=== PATIENT | female | born 1955 | race Caucasian/White ===

== ENCOUNTER 2019-07-13 12:35 | Inpatient (IN) | payer OTHER ==
[~2019-07-13] VITALS: Ht 160 cm; Wt 178.1 kg
[~2019-07-13 12:35] MED LIST: ALBU90OI61 INH; AMLO10 PO; AMOX500 PO; ASPI325 PO; AZIT250 PO; CARV6.25 PO; CEPH500 PO; CHOL10002; CHOL10002 PO; DIPATR PO; DULO60 PO; GABA300 PO; HYDACE5 PO; HYDCHL25; LEVFLO500 PO; LISI20; LOVA40 PO; MECL25 PO; MELO7.5; NICO21TP TOP; ONDA8ODT MM; OXYB5 PO; OXYB5ER PO; PRED20 PO; QVAR7.3 G1 INH; RXNEOPOLHC AU; TOPI25 PO
[2019-07-13 13:13] LABS: PCO2 Arterial 44.8 mmHg (35-45); PO2 Arterial 59.7 mmHg (80-100); pH Blood Arterial 7.43 (7.35-7.45)
[2019-07-13 13:29] LABS: BASOPHILS ABSOLUTE AUTO 0.04 K/mm3 (0.00-0.23); BASOPHILS PERCENT AUTO 0 % (0-2); EOSINOPHILS ABSOLUTE AUTO 0.02 K/mm3 (0.00-0.68); EOSINOPHILS PERCENT AUTO 0 % (0-6); Hematocrit 38.7 % (33.0-51.0); Hemoglobin 12.1 g/dL (11.5-16.0); IMMATURE GRAN ABSOLUTE AUTO 0.11 K/mm3 (0.00-0.10); IMMATURE GRAN PERCENT AUTO 1 % (0-1); LYMPHOCYTES ABSOLUTE AUTO 1.59 K/mm3 (0.84-5.20); LYMPHOCYTES PERCENT AUTO 10 % (21-46); MONOCYTES ABSOLUTE AUTO 1.43 K/mm3 (0.16-1.47); MONOCYTES PERCENT AUTO 9 % (4-13); Mean Corpuscular HGB 31.8 pg (26.0-34.0); Mean Corpuscular HGB Conc 31.3 g/dL (31.5-36.5); Mean Platelet Volume 10.7 fL (9.1-12.4); NEUTROPHILS PERCENT AUTO 80 % (41-73); Platelet Count 132 K/mm3 (150-400); RDW Coefficient Variation 14.2 % (11.7-14.2); RDW Standard Deviation 53.8 fL (35.1-46.3); Red Blood Cell Count 3.81 M/mm3 (3.80-5.20); White Blood Cell Count 15.69 K/mm3 (4.00-11.30)
[2019-07-13 13:30] LABS: Mean Corpuscular Volume 102 fL (80-100)
[2019-07-13 13:51] LABS: Albumin, Blood 2.2 g/dL (3.4-5.0); Albumin/Globulin Ratio 0.6 (0.8-1.8); Bun/Creatinine Ratio 34.4 (12.0-20.0); Creatinine, Blood 1.28 mg/dL (0.40-1.00); Globulin, Blood 3.9 g/dL (2.2-4.0); Potassium, Blood 4.6 mmol/L (3.5-5.5); Total Protein, Blood 6.1 g/dL (6.4-8.2)
[2019-07-13 14:28] LABS: Troponin I 0.972 ng/mL (0.000-0.040)
[2019-07-13 14:33] LABS: Calcium, Blood 5.1 mg/dL (8.5-10.1)
[2019-07-13] MEDS ORDERED: OXYB5 PO (14:53)
[2019-07-13] MEDS ORDERED: ALBU90OI INH (14:53)
[2019-07-13] MEDS ORDERED: HYDR1TAB94 PO (14:54)
[2019-07-13] MEDS ORDERED: POTCHL20ER PO (14:54)
[2019-07-13] MEDS ORDERED: TIOT18 INH (14:55)
[2019-07-13] MEDS ORDERED: SALM50IP INH (14:55)
[2019-07-13] MEDS ORDERED: CLOP75 PO (14:58)
[2019-07-13] MEDS ORDERED: Accuneb0.63 MG/3 NEB (15:00)
[2019-07-13] MEDS ORDERED: GABA300 PO (15:01)
[2019-07-13] MEDS ORDERED: LISI20 PO (15:03)
[2019-07-13] MEDS ORDERED: FURO40 PO (15:03)
[2019-07-13] MEDS ORDERED: DULO30 PO (15:14)
[2019-07-13] MEDS ORDERED: ATOR80 PO (15:15)
[2019-07-13] MEDS ORDERED: Aspir 8181 MG PO (15:15)
[2019-07-13 15:49] LABS: Calcium, Blood 8.4 mg/dL (8.5-10.1); Magnesium, Blood 2.2 mg/dL (1.6-2.4); Phosphorus, Blood 4.4 mg/dL (2.5-4.9)
--- NOTE | 2019-07-14 04:55 | NUR ---
AOX3. LS SLIGHTLY DIM, DENIES SOB. PT WAS ON 7L NC, USUALLY WEARS 2.5L AT NIGHT AT HOME. NO C/O NAUSEA. PAIN RATED 6/10 IN KNEES AND R SHOULDER. SR ON TELE WITH PVCS. VSS. SECOND TROP TRENDING DOWN. SBA W/1 AND WALKER TO BSC. UNSURE OF DC PLAN AT THIS TIME.
[2019-07-14 05:14] LABS: BASOPHILS ABSOLUTE AUTO 0.03 K/mm3 (0.00-0.23); BASOPHILS PERCENT AUTO 0 % (0-2); EOSINOPHILS PERCENT AUTO 0 % (0-6); Hematocrit 38.6 % (33.0-51.0); Hemoglobin 12.2 g/dL (11.5-16.0); IMMATURE GRAN ABSOLUTE AUTO 0.06 K/mm3 (0.00-0.10); IMMATURE GRAN PERCENT AUTO 0 % (0-1); LYMPHOCYTES ABSOLUTE AUTO 0.86 K/mm3 (0.84-5.20); LYMPHOCYTES PERCENT AUTO 6 % (21-46); MONOCYTES ABSOLUTE AUTO 0.53 K/mm3 (0.16-1.47); MONOCYTES PERCENT AUTO 4 % (4-13); Mean Corpuscular HGB 30.7 pg (26.0-34.0); Mean Corpuscular HGB Conc 31.6 g/dL (31.5-36.5); Mean Platelet Volume 10.8 fL (9.1-12.4); NEUTROPHILS ABSOLUTE AUTO 12.25 K/mm3 (1.96-9.15); NEUTROPHILS PERCENT AUTO 89 % (41-73); Platelet Count 135 K/mm3 (150-400); RDW Coefficient Variation 13.8 % (11.7-14.2); RDW Standard Deviation 49.6 fL (35.1-46.3); Red Blood Cell Count 3.97 M/mm3 (3.80-5.20); White Blood Cell Count 13.73 K/mm3 (4.00-11.30)
[2019-07-14 05:17] LABS: Mean Corpuscular Volume 97 fL (80-100)
[2019-07-14 05:34] LABS: Magnesium, Blood 2.3 mg/dL (1.6-2.4)
[2019-07-14 05:46] LABS: Albumin, Blood 2.6 g/dL (3.4-5.0); Albumin/Globulin Ratio 0.7 (0.8-1.8); Bilirubin, Total 1.2 mg/dL (0.1-1.0); Bun/Creatinine Ratio 32.3 (12.0-20.0); Calcium, Blood 8.5 mg/dL (8.5-10.1); Creatinine, Blood 1.58 mg/dL (0.40-1.00); Globulin, Blood 3.7 g/dL (2.2-4.0); Potassium, Blood 4.2 mmol/L (3.5-5.5); Total Protein, Blood 6.3 g/dL (6.4-8.2)
[2019-07-14 11:45] LABS: Source, Urine Clean Catch
[2019-07-14 12:03] LABS: Bilirubin, Urine Neg (Neg); Blood, Urine 2+ (Neg); Glucose Qualitative, Urine Neg (Neg); Ketones, Urine Neg (Neg); Leukocyte Esterase, Urine Neg (Neg); Nitrite, Urine Neg (Neg); Protein, Urine 1+ (Neg); Urobilinogen, Urine NORM (Normal)
[2019-07-14 12:25] LABS: Appearance, Urine Clear (Clear); Color, Urine Pale Yellow (P-Yellow)
[2019-07-14 12:29] LABS: Bacteria Not Seen /hpf; Granular Casts 0-2 /lpf (0); Red Blood Cells, Urine 0-2 /hpf (0-2); Squamous Epithelial Cells Many /hpf (Few); White Blood Cells, Urine 0-2 /hpf (0-5)
--- NOTE | 2019-07-14 17:46 | NUR ---
SHIFT SUMMARY: PT IS A/O X 4 WITH C/O PAIN X 1 FOR WHICH SHE REPORTS THE PRN PAIN MED WAS EFFECTIVE. PT HAS BEEN VERY PLEASANT AND COOPERATIVE WITH CARE. URINE WAS COLLECTED AND UA SENT TO LAB ORDERED. CRITICAL TROPONIN LEVEL WAS CALLED IN TO DR ROBLES AND NO NEW ORDERS WERE GIVEN, PT HAS REMAINED ASYMPTOMATIC. PT DAUGHTER HAS BEEN AT BEDSIDE MOST OF THE DAY AND IS ALSO VERY PLEASANT. PT CALLS FOR HELP WHEN NEEDED.
--- NOTE | 2019-07-15 06:10 | NUR ---
63 year old Female with acute on heart failure continues on oxygen per her home use and she has own cpap but have not seen her using it tonight. Resp therapy inspected CPAP unit. Continous pulse oximetry rarely alarms. Medicated PT x 1 with norco 5/325 mg tab one for co rt shoulder pain. On tele monitor NSR rate 70 with PVC's PACS. Quiet, responds to verbal stumuli. PT with morbid obesity, EDSON, CHF. Recent kidney stone passed without intervention. Urine shannon voids only 1 time. Poor appetite. Family in to see PT, she cares for 3 Grandchildren several times a month. Resting quietly this shift.
--- NOTE | 2019-07-15 18:02 | NUR ---
SHIFT SUMMARY PT AWAKE WATCHING TV, DURING SHIFT REPORT THIS AM. HOME CPAP ON BS TABLE, BUT DID NOT USE DURING THE NIGHT. PT ON 2.5L AT START OF SHIFT. PER REPORT, PT NORMALLY ONLY USES O2 AT HS, BUT HAD BEEN ON 5L DURING THE DAY. ADMITTED FOR CHF, MORBIDLY OBESE WITH SCD'S ON. REPORTED PAIN TO R SHOULDER AND L FLANK (D/T RECENT KIDNEY STONE), BUT DECLINED NEEDING MEDICATION. PER NOC REPORT, PT ONLY UP TO VOID X1. LASIX GIVEN IN AM AND ORDER CHANGED LATER TO BID FOR TODAY. PT REPORTED BEING UP TO VOID SEVERAL TIMES TODAY. DAUGHTER HERE TO VISIT DURING THE DAY; ASSISTING PT IN SHOWER PER PT REQUEST. SCATTERED SCABS ON ARMS; PT HAD TO BE REMINDED DURING SHIFT REPORT NOT TO SCRATCH. NO C/O THRU OUT THE DAY. PLEASANT. DENIED NEEDS. CALL LT IN REACH.
--- NOTE | 2019-07-16 04:20 | NUR ---
PT continues on diuretics to treat acute on chronic CHF. She uses nc at 3 l or cpap at HS. Baseline does not use oxygen during day typically. PT using cpap with 3 l bled in . sats greater than 90% via bioxx monitor. Tele monitor continues to show NSR with pac and pvc. PT has morbid obesity is able to get up to BSC unassisted but needs assist with showering and ADLS. and adult Child assists with ADLS.
[2019-07-16 04:40] LABS: Hematocrit 41.1 % (33.0-51.0); Hemoglobin 13.1 g/dL (11.5-16.0); Mean Corpuscular HGB 30.9 pg (26.0-34.0); Mean Corpuscular HGB Conc 31.9 g/dL (31.5-36.5); Mean Corpuscular Volume 97 fL (80-100); Mean Platelet Volume 10.3 fL (9.1-12.4); Platelet Count 187 K/mm3 (150-400); RDW Coefficient Variation 13.9 % (11.7-14.2); RDW Standard Deviation 49.1 fL (35.1-46.3); Red Blood Cell Count 4.24 M/mm3 (3.80-5.20)
[2019-07-16 05:32] LABS: Bun/Creatinine Ratio 42.4 (12.0-20.0); Calcium, Blood 8.5 mg/dL (8.5-10.1); Creatinine, Blood 1.44 mg/dL (0.40-1.00); Potassium, Blood 4.6 mmol/L (3.5-5.5)
[2019-07-16] MEDS ORDERED: NEBI5 PO (10:40)
[2019-07-16] MEDS ORDERED: SPIR25 PO (10:40)
--- NOTE | 2019-07-16 12:50 | NUR ---
DISCHARGE NOTE PT DISCHARGED TO HOME. PT TRANSFERED TO WHEELCHAIR ON OWN. PT TRANSPORTED TO VEHICLE IN WHEELCHAIR BY DAUGHTER. PT BELONGINGS WITH PATIENT. PT EDUCATED ON DISCHARGE MEDICATIONS AND FOLLOW-UP APPOINTMENTS. PT VERBALIZED UNDERSTANDING OF DISCHARGE EDUCATION.
--- NOTE | 2019-07-16 15:05 | NUR ---
Pt. is doing wel offered prayers and pt. may go home today.
== END 2019-07-16 12:48 | disposition home or self-care (01) | DRG 291 ==
LOC: ER 12:35 → MEDS 15:53 → ENPENDDIS 07-16 10:00 → MEDS 07-16 12:48
PROVIDERS: Emergency Medicine; Internal Medicine; ADMIT Internal Medicine
DX: I13.0 Hypertensive heart and chronic kidney disease with heart failure and stage 1 through stage 4 chronic kidney disease, or unspecified chronic kidney disease (principal); J96.21 Acute and chronic respiratory failure with hypoxia; I50.43 Acute on chronic combined systolic (congestive) and diastolic (congestive) heart failure; Z68.44 Body mass index [BMI] 60.0-69.9, adult; E66.01 Morbid (severe) obesity due to excess calories; N18.3 Chronic kidney disease, stage 3 (moderate); I34.0 Nonrheumatic mitral (valve) insufficiency; I25.10 Atherosclerotic heart disease of native coronary artery without angina pectoris; J44.9 Chronic obstructive pulmonary disease, unspecified; G47.33 Obstructive sleep apnea (adult) (pediatric); F32.9 Major depressive disorder, single episode, unspecified; Z87.891 Personal history of nicotine dependence; Z79.02 Long term (current) use of antithrombotics/antiplatelets; Z79.82 Long term (current) use of aspirin; Z79.899 Other long term (current) drug therapy; I25.2 Old myocardial infarction
CPT/HCPCS: 36415; 36600; 71045; 74176; 80048; 80053; 81001; 82310; 82803; 83690; 83735; 83880; 84100; 84484; 85025; 85027; 87086; 93005; 93010; 94640; 94760; 94762; 96374; 96375; 99284-25; 99285-25; A9270; A9270-GY; C8929; J1650; J1940; J2405; J2930; J3010; P9612; Q9957

== ENCOUNTER 2019-07-18 21:39 | Inpatient (IN) | payer OTHER ==
[~2019-07-18] VITALS: Ht 157.5 cm; Wt 164.1 kg
[~2019-07-18 21:39] MED LIST changes: +ALBU90OI INH; +ATOR80 PO; +Accuneb0.63 MG/3 NEB; +Aspir 8181 MG PO; +CLOP75 PO; +DULO30 PO; +FURO40 PO; +HYDR1TAB94 PO; +LISI20 PO; +NEBI5 PO; +POTCHL20ER PO; +SALM50IP INH; +SPIR25 PO; +TIOT18 INH
[2019-07-18 22:07] LABS: BASOPHILS ABSOLUTE AUTO 0.04 K/mm3 (0.00-0.23); BASOPHILS PERCENT AUTO 0 % (0-2); EOSINOPHILS ABSOLUTE AUTO 0.15 K/mm3 (0.00-0.68); EOSINOPHILS PERCENT AUTO 1 % (0-6); Hematocrit 44.8 % (33.0-51.0); Hemoglobin 13.7 g/dL (11.5-16.0); IMMATURE GRAN ABSOLUTE AUTO 0.25 K/mm3 (0.00-0.10); IMMATURE GRAN PERCENT AUTO 2 % (0-1); LYMPHOCYTES ABSOLUTE AUTO 1.12 K/mm3 (0.84-5.20); LYMPHOCYTES PERCENT AUTO 10 % (21-46); MONOCYTES ABSOLUTE AUTO 1.07 K/mm3 (0.16-1.47); MONOCYTES PERCENT AUTO 10 % (4-13); Mean Corpuscular HGB 31.4 pg (26.0-34.0); Mean Corpuscular HGB Conc 30.6 g/dL (31.5-36.5); Mean Platelet Volume 10.3 fL (9.1-12.4); NEUTROPHILS ABSOLUTE AUTO 8.65 K/mm3 (1.96-9.15); NEUTROPHILS PERCENT AUTO 77 % (41-73); NRBC ABSOLUTE 0.02 K/mm3 (0.00-0.02); NRBC Auto 0.2 /100 WBC (0.0-0.2); Platelet Count 236 K/mm3 (150-400); RDW Coefficient Variation 13.8 % (11.7-14.2); RDW Standard Deviation 52.5 fL (35.1-46.3); Red Blood Cell Count 4.36 M/mm3 (3.80-5.20); White Blood Cell Count 11.28 K/mm3 (4.00-11.30)
[2019-07-18 22:08] LABS: Mean Corpuscular Volume 103 fL (80-100)
[2019-07-18 22:25] LABS: Albumin, Blood 2.9 g/dL (3.4-5.0); Albumin/Globulin Ratio 0.8 (0.8-1.8); Bilirubin, Total 0.6 mg/dL (0.1-1.0); Bun/Creatinine Ratio 27.5 (12.0-20.0); Calcium, Blood 8.7 mg/dL (8.5-10.1); Creatinine, Blood 1.31 mg/dL (0.40-1.00); Globulin, Blood 3.8 g/dL (2.2-4.0); Total Protein, Blood 6.7 g/dL (6.4-8.2)
[2019-07-18 22:45] LABS: Base Excess Venous 0.7 mmol/L; Bicarbonate Venous 22.2 mmol/L (24.0-30.0); PCO2 Venous 72.6 mmHg (38-42); PO2 Venous 33.5 mmHg (38-42); pH Blood Venous 7.21 (7.34-7.37)
[2019-07-18 23:13] LABS: Troponin I 0.246 ng/mL (0.000-0.040)
[2019-07-19 00:13] LABS: Base Excess Venous 7.3 mmol/L; Bicarbonate Venous 27.6 mmol/L (24.0-30.0); PCO2 Venous 65.9 mmHg (38-42); PO2 Venous 29 mmHg (38-42); pH Blood Venous 7.32 (7.34-7.37)
[2019-07-19 03:22] LABS: Source, Urine Clean Catch
[2019-07-19 03:26] LABS: Bilirubin, Urine Neg (Neg); Blood, Urine 5+ (Neg); Glucose Qualitative, Urine Neg (Neg); Ketones, Urine Neg (Neg); Leukocyte Esterase, Urine 1+ (Neg); Nitrite, Urine Neg (Neg); Protein, Urine 2+ (Neg); Urobilinogen, Urine NORM (Normal)
[2019-07-19 03:32] LABS: Appearance, Urine Hazy (Clear); Color, Urine Amber (P-Yellow)
[2019-07-19 03:33] LABS: Amorphous Mod ({null, 0-Heavy}); Bacteria Few /hpf; Red Blood Cells, Urine 0-2 /hpf (0-2); Squamous Epithelial Cells Few /hpf (Few)
[2019-07-19 03:42] LABS: U Amphetamine Screen Not Detected; U Barbituate Screen Not Detected; U Benzodiazapine Screen Not Detected; U Buprenorphine Screen Not Detected; U Cannabinoids Screen Not Detected; U Cocaine Screen Not Detected; U Methadone Screen Not Detected; U Methamphetamine Screen Not Detected; U Opiates Screen DETECTED; U Oxycodone Screen Not Detected; U Phencyclidine Screen Not Detected; U Propoxyphene Screen Not Detected
--- NOTE | 2019-07-19 03:48 | NUR ---
NO PEDAL PULSES BILATERALLY VIA DOPPLER OR PALP, SLIGHT TIBIAL VIA DOPPLER TO LEFT BUT NOT DETECTED ON RIGHT. DR. COCHRAN NOTIFIED. NEW ORDERS TO START HEPARIN gtt PER PROTOCOL.
[2019-07-19 05:24] LABS: PCO2 Arterial 47.2 mmHg (35-45); pH Blood Arterial 7.43 (7.35-7.45)
[2019-07-19 06:30] LABS: Hematocrit 41.9 % (33.0-51.0); Hemoglobin 12.7 g/dL (11.5-16.0); Mean Corpuscular HGB 30.5 pg (26.0-34.0); Mean Corpuscular HGB Conc 30.3 g/dL (31.5-36.5); Mean Corpuscular Volume 101 fL (80-100); Mean Platelet Volume 10.2 fL (9.1-12.4); Platelet Count 222 K/mm3 (150-400); RDW Standard Deviation 51.8 fL (35.1-46.3); Red Blood Cell Count 4.16 M/mm3 (3.80-5.20); White Blood Cell Count 10.92 K/mm3 (4.00-11.30)
--- NOTE | 2019-07-19 06:34 | NUR ---
DR. COCHRAN TO BEDSIDE. VERBAL ORDER TO STOP HEPARIN gtt. HEPARIN gtt DC'D.
--- NOTE | 2019-07-19 06:46 | NUR ---
SHIFT SUMMARY: PT'S HYPOTENSING SEEMED TO HAVE RESOLVED FROM ER TO ICU (AFTER NARCAN ADMINISTRATION) PT TOLERATING BIPAP WELL. HAS BEEN SLEEPING SINCE SHORTLY AFTER ADMIT COMPLETE. DR. COCHRAN TO BEDSIDE THIS AM AFTER REPORTING PT WITH BILAT LOWER EXTREM CYANOSIS WITH NO PULSES. DR. COCHRAN STATED THAT THIS IS PROBABLY PT'S BASELINE AND DC'D HEPARIN gtt. PT CURRENTLY SLEEPING QUIETLY, VSS. WILL REPORT OFF TO ONCOMING RN.
[2019-07-19 06:50] LABS: Albumin, Blood 2.8 g/dL (3.4-5.0); Albumin/Globulin Ratio 0.8 (0.8-1.8); Bilirubin, Total 0.6 mg/dL (0.1-1.0); Bun/Creatinine Ratio 27.2 (12.0-20.0); Calcium, Blood 8.3 mg/dL (8.5-10.1); Creatinine, Blood 1.25 mg/dL (0.40-1.00); Globulin, Blood 3.4 g/dL (2.2-4.0); Magnesium, Blood 2.1 mg/dL (1.6-2.4); Potassium, Blood 4.8 mmol/L (3.5-5.5); Total Protein, Blood 6.2 g/dL (6.4-8.2)
[2019-07-19 06:52] LABS: Troponin I 0.232 ng/mL (0.000-0.040)
--- NOTE | 2019-07-19 07:29 | NUR ---
BEGINNING OF SHIFT Assumed care at 0700. Bedside report received from Jane FRANCE. Pt on BiPAP 12/07, 40% FiO2. Pt given break from BiPAP, placed on 5 LPM NC to maintain SpO2 90% or greater. Pt drowsy, but able to answer questions appropriately. Oriented to self, place, and time. Lungs have expiratory wheeze RUL, RML, TRIXIE. Dim in bilateral bases. SR per monitor. Trace peripheral edema noted. Faint pedal and post tibial pulses identified to LLE with doppler. Unable to locate pedal and post tibial pulses with doppler to RLE. Capillary refill > 3 seconds BLE. BLE dusky and cold to touch. Pt placed back on BiPAP. Pt denies need at this time.
--- NOTE | 2019-07-19 07:49 | NUR ---
DR VILLEDA IN TO SEE PT Pt taken off BiPAP to speak to provider. Pt able to answer all questions appropriately. Dr Villeda states pt may go to medical floor with CPAP PRN. RT Kathleen in room, aware of plan of care.
--- NOTE | 2019-07-19 12:43 | NUR ---
PT TRANSFERRED TO MEDICAL FLOOR Transferred to room 309. Report given to Gill FRANCE. Chart, belongings, meds transferred with pt. RT notified of transfer.
--- NOTE | 2019-07-19 13:52 | NUR ---
HANDOFF NOTE RECEIVED HANDOFF FROM ICU NURSE YANIV. PT TRANSFERED TO MEDICAL FLOOR AND ORIENTED TO UNIT. CALL LIGHT WITHIN REACH. LUNCH PROVIDED TO PT. 3 LPM O2 ADMINISTERED. PT ON TELEMETRY MONITORED BY PCU
[2019-07-19 14:21] LABS: Troponin I 0.167 ng/mL (0.000-0.040)
--- NOTE | 2019-07-19 16:10 | NUR ---
SHIFT SUMMARY PT TRANSFERED FROM ICU. HANDOFF REPORT RECEIVED FROM ICU NURSE YANIV. PT DID WORK WITH PT TODAY. SHE WAS ABLE TO SIT ON THE EDGE OF THE BED, BUT WAS NOT STRONG ENOUGH TO STAND. PT GAVE HER BED EXERCISES TO PRACTICE. PT ATE ONLY 50% OF HER LUNCH. PLAN IS TO DIURESE HER AND GET HER STRONGER TO RETURN HER TO HER BASELINE. SHE USES A FWW AT HOME. 2.5 LPM O2 AT HOME. HERE SHE IS USING 3 LPM O2 AND ONLY SATS AT 90%. PRN CPAP IS AVAILABLE. BLOOD PRESSURES HAVE BEEN WNL. TROPONINS ARE DOWNTRENDING OF THIS AM.
--- NOTE | 2019-07-20 04:19 | NUR ---
FAMILY VISITED AT SHIFT COMMENCE. AFFECT AND INTERACTIONS AT THAT TIME ATTENTIVE. LATER COMPLAINED OF PAIN OF LOWER EXTREMITIES AND REQUESTED "NORCO 5" WHICH SHE SAID SHE TOOK AT HOME. MD NOTIFIED AND ORDERS RECEIVED. HAS HAD NORCO 5 X 2 THIS SHIFT. WILL ASK AM SHIFT TO FOLLOW UP WITH PAIN ANALGESICS.
[2019-07-20 05:39] LABS: Bun/Creatinine Ratio 24.6 (12.0-20.0); Calcium, Blood 8.6 mg/dL (8.5-10.1); Creatinine, Blood 1.18 mg/dL (0.40-1.00); Potassium, Blood 4.1 mmol/L (3.5-5.5)
--- NOTE | 2019-07-20 11:05 | NUR ---
DISCHARGE CANCELLED PHYSICAL THERAPY RECOMMENDING SNF ON DISCHARGE. I NOTIFIED HOSPITALIST VIA TELEPHONE. HE CANCELLED DISCHARGE ORDERS FOR TODAY
--- NOTE | 2019-07-20 16:14 | NUR ---
SHIFT SUMMARY PHYSICAL THERAPY EVAL RECOMMENDS SNF ON DISCHARGE. IMAGING SCAN PERFORMED ON RT LOWER LEG TODAY. TELEMETRY DISCONTINUED. PT IS READY FOR DISCHARGE, AWAITING PLACEMENT AND CARE MANAGEMENT INPUT. PT REQUESTED NORCO ONE TIME THIS SHIFT. SHE DID REFUSE TO WORK WITH PHYSICAL THERAPY DUE TO HER ANXIETY ABOUT HER LEG. LEFT AC IV WAS LEAKING SO I REMOVED IT.
--- NOTE | 2019-07-21 00:18 | NUR ---
NO COMPLAINTS VOICED DURING NURSING ROUNDS, (OTHER THAN VOICED DISCOMFORT OF RLE AT INITIAL ROUNDING). REVIEW OF XRAY OF RLE - NO NOTED ACUTE FX S/S, BUT DID NOTE ARTHRITIS. SEE CORRESPONDING DOCUMENTATION FOR DETAILS. CURRENTLY IS RESTING QUIETLY WITH TV ON. WILL CONTINUE TO MONITOR. CALL LIGHT IN REACH.
[2019-07-21 08:31] LABS: Bun/Creatinine Ratio 23.8 (12.0-20.0); Calcium, Blood 8.7 mg/dL (8.5-10.1); Creatinine, Blood 1.05 mg/dL (0.40-1.00); Potassium, Blood 3.8 mmol/L (3.5-5.5)
[2019-07-21] MEDS ORDERED: ALBU2.5V5 INH (10:05)
[2019-07-21] MEDS ORDERED: Lisinopril2.5 MG PO (10:07)
[2019-07-21] MEDS ORDERED: FURO40 PO (10:07)
[2019-07-21] MEDS ORDERED: POTA10T PO (10:07)
[2019-07-21 13:29] LABS: PCO2 Arterial 46.2 mmHg (35-45); pH Blood Arterial 7.49 (7.35-7.45)
[2019-07-21 13:30] LABS: PO2 Arterial 44.2 mmHg (80-100)
--- NOTE | 2019-07-21 14:08 | NUR ---
PT TRANSFERED REPORT WAS GIVEN TO TAWNY CURATOR OF EDUCATION, THE PT WAS TRANSFERD TO PCU PER ORDERS, FOR CRITICAL LOW PO2 44.2, PT WAS A/OX3 ACCOMPANIED BY HER DAUGHTER, THE PT WAS TRANSFERED IN HER BED
--- NOTE | 2019-07-21 14:24 | NUR ---
PT TRANSFER NOTE REPORT FROM KIKI FRANCE FROM MEDICAL FLOOR. PT ARRIVED ON 6L O2 VIA NASAL CANNULA, SPO2 90% UPON ARRIVAL. PT A/O X4, ANSWERING QUESTIONS APPROPRIATELY, DENIES SOB OR CP ON ARRIVAL. VSS UPON ARRIVAL. SKIN PWD, SCATTERED ABRASIONS NOTED TO ARMS AND LEGS BILAT. RT IN ROOM UPON ARRIVAL PLACED IMMEDIATELY ON BIPAP WHICH IS TOLERATED WELL, SPO2 ON BIPAP 94%. FAMILY ACCOMPANIED PT TO UNIT. LS CLEAR BUT DECREAESED IN UPPER LOBES AND DIMINSHED IN LOWER LOBES.
--- NOTE | 2019-07-21 14:45 | NUR ---
HEAD GAUGE UNIT OPERATOR DR BAIN HAS REMOVED BIPAP, PT REMAINS AT 88-89% ON 6L O2 NC. PER VERBAL ORDERS PT WILL REMAIN OFF OF BIPAP LONG PT MAINTAINS SATS AT 88% OR GREATER. PT WILL BE ON BIPAP FOR TRANSFER TO CT
--- NOTE | 2019-07-21 17:23 | NUR ---
SHIFT NOTE PT ARRIVED FROM MEDICAL FLOOR WITH DX OF RESPIRATORY FAILURE. PT WITH HX OF RECENT ADMITS FOR SIMILAR. PT WAS RECENTLY D/C ONCE RETURNING HOME HAD AN EPISODE OF SYNCOPE AND WAS BROUGHT BACK. TODAY PT WAS READY FOR D/C, DURING PT ASSESSMENT PT BEGAN WITH INCREASED LABORED BREAHING, BUT REMAINED A-SYMPTOMATIC. ABG REVEALED PO2 OF 44, DECISION WAS THEN MADE TO TRANSFER PT TO PCU. PT ARRIVED TO UNIT A/O X4, ANWERING QUESTIONS APPROPRIATELY IN SHORT FULL SENTENCES. SKIN PWD WITH SCATTERED ABRASIONS T/O UPPER EXTREMETIES BILAT. LS DECREASED BUT CLEAR IN UPPER LOBES BILAT, DIMINISHED IN LOWER BASES BILAT. DR BAIN AT BEDSIDE SHORTLY AFTER TRANSFER TO UNIT, ORDER TO REMOVE BIPAP AND MAINTAIN PT AT 6L O2 LONG SPO2 REMAINS GREATER THAN 88% AND REMAINS A-SYMPTOMATIC. UPON ARRIVAL PT WAS FLUSHED IN FACE, PER FAMILY AT BEDSIDE THIS PT'S NORMAL SKIN COLOR, AFTER RETURNING FROM CT AND MAINTAINING SPO2 OF 92% ON 6L FLUSHED FACE RESOLVED. PT STS FEELS "BETTER", IS LAUGHING AND JOKING WITH STAFF
--- NOTE | 2019-07-22 05:53 | NUR ---
PCU NOC SHIFT SUMMARY PATIENT ALERT AND ORIENTED TO SELF, LOCATION, SITUATION AND DATE. PATIENT REPORTS CHRONIC BLE NEUROPATHY AND R ANKLE PAIN (IMAGING STUDIES DONE TO R ANKLE TO R/O FX). PATIENT HAS SUPERIOR MORBID OBESIDY - CURRENTLY BEDBOUND AND STATED THAT SHE TURNS HERSLEF IN BED FOR REPOSITIONING. PATIENT HAS YEAST IN ABD, BREAST AND ARM FOLDS - TREATED PER EMAR. RESP E/U AT REST - HOWEVER PATIENT DOES BECOME SOB W/ EXCERTION - BIPAP WORN T/O THE NOC SHIFT - PATIENT TOLERTED WELL - PATIENT WAS AT 5 LPM NC PRIMOR TO BIPAP USE - PATIENT EDUCATED TO RESPIRTORY EFFORT AND DRIVE. WILL CONITUE TO MONITOR AND REPORT OFF TO DAYSHIFT RN.
[2019-07-22 06:06] LABS: Hematocrit 43.1 % (33.0-51.0); Hemoglobin 13.6 g/dL (11.5-16.0); Mean Corpuscular HGB 30.7 pg (26.0-34.0); Mean Corpuscular HGB Conc 31.6 g/dL (31.5-36.5); Mean Platelet Volume 10.2 fL (9.1-12.4); Platelet Count 232 K/mm3 (150-400); RDW Coefficient Variation 13.9 % (11.7-14.2); RDW Standard Deviation 49.3 fL (35.1-46.3); Red Blood Cell Count 4.43 M/mm3 (3.80-5.20); White Blood Cell Count 13.62 K/mm3 (4.00-11.30)
[2019-07-22 06:08] LABS: Mean Corpuscular Volume 97 fL (80-100)
[2019-07-22 06:16] LABS: Calcium, Blood 8.8 mg/dL (8.5-10.1); Creatinine, Blood 1.1 mg/dL (0.40-1.00); Potassium, Blood 3.8 mmol/L (3.5-5.5)
--- NOTE | 2019-07-22 13:45 | NUR ---
ECHO IN PROGRESS
--- NOTE | 2019-07-22 16:11 | NUR ---
Echocardiogram completed.
--- NOTE | 2019-07-22 18:36 | NUR ---
SHIFT NOTE UPON BEGINING OF SHIFT PT ON BIPAP WHICH WAS BEING TOLERATED WELL. PT A/O X4, ANSWERING QUESTIONS APPROPRIATELY. PT STS THAT SHE WISHES TO BE TAKEN OFF OF BIPAP TO SEE HOW SHE WILL DO ON NASAL CANNULA, PT PLACED ON 4L O2 VIA NASAL CANNULA, SPO2 MAINTAINED BETWEEN 90-94% ON 4L O2 T/O SHIFT. BILAT LOWER LEG EDEMA PRESENT, BUT APPEARS TO HAVE IMPROVED SINCE LAST ASSESSMENT BY THIS RN LAST NOC. PT WITH WEAKNESS TO ALL 4 EXTREMETIES, REPORTS INTERMITTENT INCREASE IN RT ANKLE PAIN BUT PAIN IS IMPROVED WITH ICE AND ELEVATION, NO DEFORMITIES NOTED TO RT ANKLE. LS CLEAR IN UPPER LOBES BILAT AND DIMINISHED IN LOWER LOBES BILAT. PT DENIES NEEDS THROUGHOUT THE DAY, WAS REPOSITIONED WITHOUT ASSISTANCE FROM PT STS "I'M TOO TIRED", ATE APPROX 90% OF ALL MEALS TODAY. HEPARIN DRIP WAS TITRATED TO 18UNITS/KG/HR DURING SHIFT.
--- NOTE | 2019-07-22 22:03 | NUR ---
ASSUMED CARE OF PATIENT AT APPROXIMATELY 1900 FROM TAWNY Luis RN. PATIENT ALERT AND ORIENTED X4; BEDBOUND; PATIENT IS VERY WEAK, HAS PAIN IN RIGHT ANKLE AND HAS DYSPNEA WITH ACTIVITY. NSR ON TELE; OXYGEN SATURATION ABOVE 90% ON 4LPM VIA NC OR ON CPAP; BIPAP REMOVED FROM ROOM. DR. BAIN BEDSIDE WITH PATIENT SHORTLY AFTER 1930; PATIENT HAS DVT IN BOTH LEGS; NO NEW ORDERS RECIEVED. PATIENT HAS PG TO WIL INFUSING HEPARIN; PIV S/L TO R ARM. NYSTATIN APPLIED TO FOLDS; DISCUSSED TURNING PATIENT FREQUENTLY. PATIENT HAD MULTIPLE FAMILY MEMBERS VISIT AFTER SHIFT CHANGE; VISITED FOR ABOUT 30 MINUTES. PATIENT HAS URINARY CATHETER DRAINING CLEAR YELLOW URINE. PATIENT CURRENTLY RESTING IN BED; CALL LIGHT IN REACH; BED IN LOWEST POSISTION; WILL CONTINUE TO MONITOR AND ASSESS UNTIL END OF SHIFT.
[2019-07-22 22:33] LABS: International Normalized Ratio 1.25
[2019-07-23 04:32] LABS: International Normalized Ratio 1.25
--- NOTE | 2019-07-23 05:29 | NUR ---
ASSUMED CARE APPROXIMATELY 2129. PT A&O AND ANSWERS APPROPRIATELY; FAMILY PRESENT AT BEDSIDE START OF SHIFT; ABLE TO ASSIST IN REPSITIONING USING OVERHEAD TRAPEZE; PT REFUSED REPOSITIONING AT TIMES; PT STATES R LEG/ANKLE IS VERY TENDER; O2 INCREASED TO 6L; O2 SATS >90; HEPARIN INFUSING R ARM, SEE EMAR; CATHETER DRAINING CLEAR YELLOW URINE; BED IN LOWEST POSITION; CALL LIGHT IN REACH; WILL CONTINUE TO MONITOR AND ASSESS UNTIL HAND OFF TO DAY SHIFT RN.
--- NOTE | 2019-07-23 08:11 | NUR ---
AM NOTE. ASSUMED CARE OF PT APROX 0700, PT IS A&Ox4, PT WAS ADMITTED FOR RESP FAILURE, PT IS CURRENTLY ON 4L NC WITH O2 SATS AT 92%, PT NORMALLY WEARS 2.5 L BLEED IN WITH HER CPAP AT NIGHT. PT HAS TRACE EDEMA TO HER RLE AND ANKLE AND 1+ TO HER LLE. PT'S L/S CLEAR IN THE UPPER AND DIM IN THE BASES. PT HAS VERY STRONG YEASTY SMELL, PER REPORT PT HAS YEAST RASH IN HER SKIN FOLDS AND PANNUS. PT IS ENCOURAGED TO IMPROVE MOBILITY AND WORK WITH PT/OT TODAY. WILL CONTINUE TO MONITOR.
--- NOTE | 2019-07-23 17:56 | NUR ---
SHIFT SUMMARY. NO ACUTE NEGATIVE CHANGES NOTED, PT GOT UP INTO A RECLINER CHAIR WITH PT/OT AND HAS BEEN UP IN THE CHAIR FOR MOST OF THE SHIFT. PT DENIES ANY CHEST PAIN/PRESSURE OR INCREASE SOB. PT HAS BEEN TITRATED FROM 4-6 L NC TO 2L NC WITH O2 SATS AT >93%. PT'S VS STABLE T/O SHIFT. PT HAS HAD VISITORS AT THE BEDSIDE T/O SHIFT. PT'S GILMORE IS PATENT AND DRAINING CLEAR YELLOW URINE TO GRAVITY. WILL CONTINUE TO MONITOR UNTIL REPORT IS GIVEN TO ONCOMING RN.
--- NOTE | 2019-07-23 19:25 | NUR ---
OPENING NOTE RECEIVED REPORT FROM MAGGY FRANCE AND ASSUMED CARE. PT IS SITTING UP IN BED, WATCHING TELEVISION, AND VISITING WITH GUESTS AT THE BEDSIDE. DENIES COMPLAINTS OR NEEDS AT THIS TIME. NO ACUTE CONCERNS, WILL CONTINUE PLAN OF CARE.
[2019-07-24 05:38] LABS: Mean Platelet Volume 10.8 fL (9.1-12.4); Platelet Count 249 K/mm3 (150-400)
[2019-07-24 05:56] LABS: International Normalized Ratio 1.26; Prothrombin Time Results 13.1 Sec (9.7-11.5)
--- NOTE | 2019-07-24 06:04 | NUR ---
SHIFT SUMMARY PT HAS RESTED WELL THROUGH SHIFT, DENIES COMPLAINTS. CPAP IN PLACE THROUGH THE NIGHT FOR SLEEP APNEA, PT TOLERATES WELL BUT O2 BLEED-IN TITRATED UP TO 7 L TO MAINTAIN SATS >89. PT AROUSES EASILY AND IS ABLE TO PARTICIPATE IN REPOSITIONING. HEPARIN GTT TITRATED (SEE EMAR) AND RUNNING TO R AC 20 G. POWERGLIDE TO L UPPER ARM IS DRAWING WELL FOR AM LABS. OVERALL STATUS: UNCHANGED R/T CONTINUED NEED FOR O2 AND DENIAL OF CHEST PAIN OR SHORTNESS OF BREATH. WILL PROVIDE BEDSIDE REPORT TO ONCOMING RN.
[2019-07-24 06:13] LABS: Bun/Creatinine Ratio 20.6 (12.0-20.0); Calcium, Blood 8.8 mg/dL (8.5-10.1); Creatinine, Blood 1.02 mg/dL (0.40-1.00); Potassium, Blood 3.6 mmol/L (3.5-5.5)
--- NOTE | 2019-07-24 07:25 | NUR ---
AM NOTE. ASSUMED CARE OF PT APROX 0700, PT IS A&Ox4 AND WAS ADMITTED FOR RESP FAILURE WITH SADDLE PE AND DVTS. PT DENIES CHEST PAIN/PRESSURE N/V OR INCREASED SOB THIS AM. PT IS IN NSR IN THE 70'S-80'S, PT HAS TRACE EDEMA TO HER RLE AND 1+ TO LLE. L/S CLEAR T/O DIM IN THE MID LOBE AND BASES, PT IS CURRENTLY ON 7L BLEED IN TO HER CPAP AND 2 L WHEN ON NC. BT PRESENT AND HYPOACTIVE, ABD IS SOFT AND NONTENDER TO PALP. PT HAS SCABS ALL OVER UPPER ARMS, PT HAS BEEN ENCOURAGED NOT TO ITCH HER ARMS. LAST NIGHT AT THE END OF DAY SHIFT PT WAS UP IN THE CHAIR. PT/OT HAD HELPED THE PT UP TO THE CHAIR WITH OUT ISSUE. WHEN PT WAS READY TO GET BACK INTO BED PT WAS UNABLE TO STAND, PER PT HER ANKLE "HURT TOO MUCH." THE LIFT WAS REQUIRED TO GET THE PT BACK INTO BED. WILL CONTINUE TO MONITOR.
--- NOTE | 2019-07-24 10:51 | NUR ---
PT UPDATE... PT'S MANDO WAS D/C'D, PT ENCOURAGED TO GET UP TO THE BSC WHEN FEELING THE URGE TO VOID. WILL CONTINUE TO MONITOR
--- NOTE | 2019-07-24 13:40 | NUR ---
Pt. reports doing much better pastoral care provided.
--- NOTE | 2019-07-24 17:00 | NUR ---
SHIFT SUMMARY. NO ACUTE NEGATIVE CHANGES NOTED. NO EVENTS NOTED ON TELE, PT DENIES ANY CHEST PAIN/PRESSURE, N/V OR INCREASED SOB. PT'S GILMORE WAS D/C'D THIS AM.PT HAS INCREASED O2 REQUIRMENTS, HOWEVER WHEN A DIFFERENT PULSEOX WAS USED THE PT'S O2 SATS WERE IN THE LOW TO MID 90'S. PT IS CURRENTLY ON 3-4 L NC WITH O2 SATS AT 90%. PT GOT UP AND WALKED SEVERAL STEPS FROM THE BED TO THE RECLINER WITH PT/OT. APROX 2 HOURS LATER PT REQUESTED TO USE THE BSC, PT WAS UNABLE TO STAND, PT/OT WAS CALLED BACK TO THE ROOM TO ASSIST AND THEY WERE UNABLE TO HELP HER STAND WELL. PT WAS MOVED TO A LIFT ROOM AND THE LIFT WAS USED TO GET THE PT BACK TO BED, PT WAS UNABLE TO USE THE BEDPAN STATING SHE DIDN'T FEEL LIKE SHE NEEDED TO GO ANYMORE. PT STATES THAT SHE IS VERY CONCERNED ABOUT HER RIGHT ANKLE STATING "ANY TIME I STAND IS ROLLS ON ME." XRAY WAS DONE OF THE PT'S ANKLE AND IT WAS NEGATIVE. CALL LIGHT IN REACH, BED IS LOCKED AND LOW WILL CONTINUE TO MONITOR UNTIL REPORT IS GIVEN TO ONCOMING RN.
--- NOTE | 2019-07-25 03:57 | NUR ---
HEPRIN GTT LINE PULLED BY PT AT AN UNKNOWN TIME THIS SHIFT. PHARMACY CALLED AND NOTIFIED. APTT DRAWN BY THIS RN VIA POWERGLIDE. HEPRIN GTT INFUSING INTO POWERGLIDE AT THIS TIME. WILL CONTINUE TO MONITOR PT AND ADJUST HEPRIN GTT PER ORDERS.
[2019-07-25 04:16] LABS: International Normalized Ratio 1.38; Prothrombin Time Results 14.2 Sec (9.7-11.5)
[2019-07-25 04:17] LABS: Anion Gap 4 mmol/L (6-16); Blood Urea Nitrogen 22 mg/dL (8-24); Bun/Creatinine Ratio 22.2 (12.0-20.0); CO2, Blood 39 mmol/L (21-32); Calcium, Blood 8.7 mg/dL (8.5-10.1); Chloride, Blood 92 mmol/L (98-108); Creatinine, Blood 0.99 mg/dL (0.40-1.00); Glomerular Filtration Rate >60 (60-); Glucose, Blood 110 mg/dL (70-99); Potassium, Blood 3.2 mmol/L (3.5-5.5); Sodium, Blood 135 mmol/L (136-145)
--- NOTE | 2019-07-25 05:30 | NUR ---
Shift Summary Pt with no acute changes this shift, VSS, no events on tele. Pt pulled PIV at some unknown time this shift, heprin infusing in the PIV pulled. APTT drawn and orders adjusted per pharmacy. Pt medicated per orders. Breathing easy and unlabored at rest. Pt needing NC 5-6 L, CPAP with 5L bleed in this shift. Pt maintaining o2 saturations >92%. Pt remains alert and oriented, able to make needs known, uses call light appropriately. This pt is conversing with staff and responding to questions appropriately. No acute declines noted this shift. WIL Powerglide draws and flushes. Currently infusing heprin gtt into WIL powerglide. No changes from initial shift assessment. Minimal urine output this shift, no fluids running per orders. Bladder scan to be performed, will update with results.
--- NOTE | 2019-07-25 10:19 | NUR ---
AM NOTE. ASSUMED CARE OF PT APROX 0700. PT IS A&Ox4 AND WAS ADMITTED FOR RESP FAILURE AND PE/DVTS. PT'S VS HAVE BEEN STABLE. PT IS ON 6L NC WITH O2 SATS AT 93%. PT IS IN NSR, PT DENIES ANY CHEST PAIN/PRESSURE, N/V OR INCREASED SOB. PT IS ON RA AT BASELINE. PT IS IN NSR IN THE 80'S-90'S. PT HAS TRACE EDEMA TO HER RIGHT ANKEL, AND 1+ PT HER LLE. PT IS C/O OF PAIN TO THE RIGHT ANKEL, THERE IS NEW BRUISING NOTED ON THE RIGHT ANKEL THAT WAS NOT THERE YESTERDAY. L/S CLEAR AND DIM T/O. BT PRESENT AND NORMOACTIVE, ABD IS SOFT AND NONTEDER TO PALP. THIS RN HAS PROVIDED EXTENSIVE EDUCATION TO PT AND FAMILY ABOUT MOBILITY, ACTIVITY AND PREVENTING SKIN BREAKDOWN. PT STATED HER UNDERSTANDING BUT REQUIRES EXTENSIVE ENCOURAGMENT TO PERFORM SIMPLE ADLS, OR HELP REPOSITION HERSELF WITH NURSING STAFF. WILL CONTINUE TO MONITOR.
--- NOTE | 2019-07-25 17:30 | NUR ---
SHIFT SUMMARY. NO ACUTE CHANGES NOTED THIS SHIFT. PT STILL C/O OF PAIN TO THE RIGHT ANKEL, PROVIDER AWARE AND XRAY ORDERED, PENDING RESULTS. PT'S VS STABLE T/O SHIFT. PT HAS BEEN STABLE ON 6L NC WITH O2 SATS >90%. PT DENIES ANY CHEST PAIN/PRESSURE, N/V OR INCREASED SOB. PT WORKED WITH PT/OT TODAY AND HAS BEEN GETTING UP TO THE SIDE OF THE BED FOR MEALS. CALL LIGHT IN REACH, BED IS LOCKED AND LOW WILL CONTINUE TO MONITOR UNTIL REPORT IS GIVEN TO ONCOMING RN.
--- NOTE | 2019-07-25 21:41 | NUR ---
yPt presents sitting in bed with family at bedside, conversing with family and staff. Heprin gtt infusing per orders, verified with off going RNPadmini. Pt breathing easy and unlabored at rest, currently on 6LNC with o2 saturtaions at 94%. A&0. Moves all extremities independantly. Pt with flat affect, denies pain. See shift assessment for detailed assessment. Aptt drawn by lab, pharmacy called this RN to notify this RN of no change in rate for heprin gtt at this time. Next aptt to be drawn in AM. Heprin continue to infuse per orders. Pt takes pills whole with water, uses call light to make needs known, call light in reach, bed low and locked. Will continue to monitor and provide care.
--- NOTE | 2019-07-26 04:29 | NUR ---
Shift Summary VSS this shift, no complaints of SOB per pt, able to titrate NC from 6L to 5L. This pt is RA at baseline (CPAP at night with 2.5 L bleed in at baseline per pt). Pt without complaints of pain this shift, when asked if experiencing pain, pt denies. Pt able to sleep on and off throughout this shift without desaturations. No acute events on tele, denies chest pain or pressure. pt remains alert and oriented this shift, conversing approrpiately with staff, using call light to make needs known. Pt is bedbound, uses bedpan when needing to void. Pt with one large void this shift. At begining of shift, pt minimally assisting with turning but after encouragement pt now assisting with turns. When pt assists with turns, she requires only one staff memeber to perform skin care, turns, bedpan. when pt does not assist with turns she requires two staff members. Pt educated on risk for further deconditioning, encouraged to do exercises. pt responded well. No acute changes or declines this shift. No acute concerns. will continue to monitor, provide care per orders, and continue with plan of care until report off to day RN.
[2019-07-26 04:48] LABS: Anion Gap 5 mmol/L (6-16); Blood Urea Nitrogen 22 mg/dL (8-24); Bun/Creatinine Ratio 23.9 (12.0-20.0); CO2, Blood 37 mmol/L (21-32); Calcium, Blood 8.6 mg/dL (8.5-10.1); Chloride, Blood 93 mmol/L (98-108); Creatinine, Blood 0.92 mg/dL (0.40-1.00); Glomerular Filtration Rate >60 (60-); Glucose, Blood 102 mg/dL (70-99); Magnesium, Blood 1.9 mg/dL (1.6-2.4); Potassium, Blood 3.5 mmol/L (3.5-5.5); Sodium, Blood 135 mmol/L (136-145)
[2019-07-26 04:51] LABS: International Normalized Ratio 1.99; Prothrombin Time Results 19.8 Sec (9.7-11.5)
--- NOTE | 2019-07-26 17:37 | NUR ---
SHIFT NOTE PT FREQUENTLY DROWSY T/O DAY, DID VISIT WITH FAMILY THEY STOPPED BY T/O THE DAY. HAS MAINTAINED SPO2 AROUND 93% ON 4L O2 VIA NASAL CANNULA. LS CLEAR BUT DECREASED. PT HAS BEEN ON AND OFF OF BED KRISHNA WITH PCT, ABLE TO ROLL SELF WITH LITTLE DIFFICULTY. PT A/O X4 OTHERWISE IS ABLE TO ANSWER QUESTIONS APPROPRIATELY. VSS T/O THE DAY. SCATTER SCABS NOTED TO ARMS AND LEGS. PT DDI COMPLAIN OF PAIN ONCE TODAY THAT WAS RESOLVED WITH NORCO. OTHERWISE PT HAS DENIED NEEDS TODAY. PT USING CALL LIGHT FOR TOILETING AND ADLS TODAY.
--- NOTE | 2019-07-26 19:15 | NUR ---
ASSUMED CARE assumed care at approx 1900; heprin gtt rate change ordered and rate verified with EDILMA Richardson. Pt now infusing at 19.5 u/kg/hr per orders. VSS. Breathing easy and unlabored on 4L NC. No apparent sign of distress. Pt alert and oriented, able to voice concerns; pt with no questions or requests at this time. Will continue to monitor and update as needed. No acute concerns to note.
[2019-07-27 04:34] LABS: BASOPHILS ABSOLUTE AUTO 0.08 K/mm3 (0.00-0.23); BASOPHILS PERCENT AUTO 1 % (0-2); EOSINOPHILS ABSOLUTE AUTO 0.12 K/mm3 (0.00-0.68); EOSINOPHILS PERCENT AUTO 1 % (0-6); Hematocrit 38.9 % (33.0-51.0); Hemoglobin 12.1 g/dL (11.5-16.0); IMMATURE GRAN ABSOLUTE AUTO 0.04 K/mm3 (0.00-0.10); IMMATURE GRAN PERCENT AUTO 0 % (0-1); LYMPHOCYTES PERCENT AUTO 15 % (21-46); MONOCYTES ABSOLUTE AUTO 1.14 K/mm3 (0.16-1.47); MONOCYTES PERCENT AUTO 10 % (4-13); Mean Corpuscular HGB 30.7 pg (26.0-34.0); Mean Corpuscular HGB Conc 31.1 g/dL (31.5-36.5); Mean Corpuscular Volume 99 fL (80-100); Mean Platelet Volume 10.7 fL (9.1-12.4); NEUTROPHILS ABSOLUTE AUTO 8.51 K/mm3 (1.96-9.15); NEUTROPHILS PERCENT AUTO 73 % (41-73); Platelet Count 249 K/mm3 (150-400); RDW Coefficient Variation 13.5 % (11.7-14.2); RDW Standard Deviation 49.1 fL (35.1-46.3); Red Blood Cell Count 3.94 M/mm3 (3.80-5.20); White Blood Cell Count 11.69 K/mm3 (4.00-11.30)
[2019-07-27 04:50] LABS: Anion Gap 5 mmol/L (6-16); Blood Urea Nitrogen 22 mg/dL (8-24); Bun/Creatinine Ratio 25.9 (12.0-20.0); CO2, Blood 35 mmol/L (21-32); Calcium, Blood 8.5 mg/dL (8.5-10.1); Chloride, Blood 94 mmol/L (98-108); Creatinine, Blood 0.85 mg/dL (0.40-1.00); Glomerular Filtration Rate >60 (60-); Glucose, Blood 104 mg/dL (70-99); Potassium, Blood 3.5 mmol/L (3.5-5.5); Sodium, Blood 134 mmol/L (136-145)
--- NOTE | 2019-07-27 06:46 | NUR ---
SHIFT SUMMARY No acute events to report this shift. VSS. Breathing remains easy and unlabored. Pt on CPAP with 4L bleed in or 4L NC if awake. A&O and able to make needs known with call light. Pt with complaint of R ankle pain x1 this shift, medicated per orders with states relief. Heprin gtt continues to infuse per orders, no rate changes this shift. No events on tele. Pt with no acute declines from initial shift assessment. Uses bedpan for elimination, able to assist with reposistioning and turns. Will continue to provide care per orders until day RN assumes care.
[2019-07-27 07:57] LABS: International Normalized Ratio 2.5; Prothrombin Time Results 24.4 Sec (9.7-11.5)
--- NOTE | 2019-07-27 18:00 | NUR ---
SHIFT NOTE PT HAS MAINTAINED SPO2 AT 93-95% ON 3L O2 T/O THE DAY. PT C/O PAIN MORE TODAY THAN PREVIOUS ENCOUNTERS WITH PT, PT REQUESTING PAIN MEDICATIONS WITHIN 3 HOURS OF LAST ADMISSION, PT EDCUATED ABOUT NORCO ADMINISTRATION TIMES, RT ANKLE IS ELEVATED W/O GREAT RELIEF OF PAIN. NO GROSS DEFORMITIES NOTED BELOW SPLINT. PT WAS UP TO BEDSIDE CHAIR TODAY WITH PT USING ENRIQUE LIFT. PT WAS UP TO BED KRISHNA NUMEROUS TIMES TODAY WITH PCT, PT DID HAVE NORCO X2 DURING THIS SHIFT. OTHER KAHN NO GROSS CHANGES WITH PT DURING THIS SHIFT.
--- NOTE | 2019-07-28 05:28 | NUR ---
Shift Summary NO acute changes this shift. VSS. Breathing easy and unlabored, O2 down to 2.5L this shift. no changes in mentations, remains alert and oriented. Pt wears CPAP at home dose of 2.5L this shift with no desaturations noted. Pt kind, conversive with staff, resting comfortably. No medication requested for pain this shift, pt states pain is "managed". Pt calls appropriately to make needs known, uses bedpan for voids. Will continue to monitor.
[2019-07-28 08:50] LABS: International Normalized Ratio 2.82; Prothrombin Time Results 27.2 Sec (9.7-11.5)
[2019-07-28 08:52] LABS: Anion Gap 4 mmol/L (6-16); Blood Urea Nitrogen 20 mg/dL (8-24); Bun/Creatinine Ratio 24.4 (12.0-20.0); CO2, Blood 36 mmol/L (21-32); Chloride, Blood 97 mmol/L (98-108); Creatinine, Blood 0.82 mg/dL (0.40-1.00); Glomerular Filtration Rate >60 (60-); Glucose, Blood 102 mg/dL (70-99); Potassium, Blood 3.7 mmol/L (3.5-5.5); Sodium, Blood 137 mmol/L (136-145)
--- NOTE | 2019-07-28 12:54 | NUR ---
PT REPORTS VERY LITTLE PAIN RELIEF WITH NORCO ADMIN, PT STATED UPON ADMINISTRATION THAT SHE HAD PAIN LEVEL OF "8" WHEN REASSESSED PT WAS RELUCTANT TO GIVE A SCORE THEN STS "7" PT ASKS IF SHE FEELS NORCO HAS BEEN AFFFECTIVE PT STS "YES I DO" DISCUSSION WITH PT THAT PAIN HAS NOT IMPROVED A GREAT DEAL WITH PAIN MEDICATION YESTERDAY SHE REPORTED A BETTER PAIN RELIEF PT STS "WELL IT HASN'T BEEN VERY LONG" PT EDUCATED THAT SAME AMT OF TIME HAS ELAPSED BETWEEN ADMINISTRATION AND ASSESSMENT TODAY AND YESTERDAY PT STS THAT PAIN HAS BEEN IMPROVED BETTER WITH ADMINISTRATION OF NORCO AND GABAPENTIN. SPLINT IS REASSESSED, NO GROSS SWELLING TO RT ANKLE, NO BRUISING NOTED, PULSES REMAIN FAINT
[2019-07-28] MEDS ORDERED: DOC250 PO (15:44)
[2019-07-28] MEDS ORDERED: TORSE20 PO (15:45)
[2019-07-28] MEDS ORDERED: WARF5 PO (15:46)
[2019-07-28] MEDS ORDERED: METO25ER PO (16:36)
--- NOTE | 2019-07-28 16:57 | NUR ---
Report called to Cherry FRANCE at [facility]
--- NOTE | 2019-07-28 17:29 | NUR ---
PT D/C TO [facility]. POWERGLIDE REMOVED INTACT FROM LT UPPER ARM. BM PRIOR TO LEAVING. BELONGINGS SENT WITH PT. CPAP SENT WITH PT. D/C ORDERS FOR OUT PT LABS, CPAP AND O2 FAXED TO [facility]. PT TRANSFERED WITH ENRIQUE TO TRANSPORT [facility]. PT OUT THE DOOR WITH TRANSPORT CREW
== END 2019-07-28 16:47 | DRG 291 ==
LOC: ER 21:39 → MEDS 21:40 → ERHOLD 21:40 → MEDS 21:40 → ICUE 21:40 → MEDS 07-19 12:34 → PCU 07-19 16:14 → MEDS 07-19 16:14 → ENPENDDIS 07-21 10:11 → PCU 07-21 14:11
PROVIDERS: Emergency Medicine; Hospitalist; Internal Medicine; Physician Assistant; ADMIT Internal Medicine
PROC: 5A09357 Assistance with Respiratory Ventilation, Less than 24 Consecutive Hours, Continuous Positive Airway Pressure (ICD-10-PCS; principal; 2019-07-18)
DX: I13.0 Hypertensive heart and chronic kidney disease with heart failure and stage 1 through stage 4 chronic kidney disease, or unspecified chronic kidney disease (principal); J96.21 Acute and chronic respiratory failure with hypoxia; N17.2 Acute kidney failure with medullary necrosis; I26.99 Other pulmonary embolism without acute cor pulmonale; Z68.45 Body mass index [BMI] 70 or greater, adult; N17.9 Acute kidney failure, unspecified; J44.1 Chronic obstructive pulmonary disease with (acute) exacerbation; E87.2 Acidosis; E66.2 Morbid (severe) obesity with alveolar hypoventilation; I82.433 Acute embolism and thrombosis of popliteal vein, bilateral; I25.10 Atherosclerotic heart disease of native coronary artery without angina pectoris; I25.2 Old myocardial infarction; Z79.82 Long term (current) use of aspirin; Z87.891 Personal history of nicotine dependence; I08.1 Rheumatic disorders of both mitral and tricuspid valves; Z79.02 Long term (current) use of antithrombotics/antiplatelets; E78.00 Pure hypercholesterolemia, unspecified; S82.51XA Displaced fracture of medial malleolus of right tibia, initial encounter for closed fracture; R82.90 Unspecified abnormal findings in urine
CPT/HCPCS: 36415; 36600; 51702; 71045; 71260; 73590; 73610; 80048; 80053; 81001; 82550; 82803; 83605; 83735; 83880; 84484; 85025; 85027; 85049; 85610; 85730; 87086; 93005; 93010; 93970; 94640; 94660; 94762; 96372; 96374; 96375; 96376; 97110; 97163; 97166; 97530; 97535; 99285-25; A9270-GY; C8929; G0378; J1644; J1650; J1940; J2310; J7030; Q9957; Q9967

== ENCOUNTER → 2019-10-09 | Outpatient (CLI) | payer OTHER ==
[~2019-10-09] MED LIST changes: +ALBU2.5V5 INH; +DOC250 PO; +Lisinopril2.5 MG PO; +METO25ER PO; +POTA10T PO; +TORSE20 PO; +WARF5 PO
[2019-10-09 06:19] LABS: Source, Urine Clean Catch
[2019-10-09 06:24] LABS: Bilirubin, Urine Neg (Neg); Blood, Urine 2+ (Neg); Glucose Qualitative, Urine Neg (Neg); Ketones, Urine Neg (Neg); Leukocyte Esterase, Urine 3+ (Neg); Nitrite, Urine Pos (Neg); Protein, Urine 2+ (Neg); Urobilinogen, Urine NORM (Normal)
[2019-10-09 06:36] LABS: Appearance, Urine Cloudy (Clear); Color, Urine Yellow (P-Yellow)
[2019-10-09 06:37] LABS: Bacteria Many /hpf; Squamous Epithelial Cells Few /hpf (Few); White Blood Cells, Urine TNTC /hpf (0-5)
== END | disposition home or self-care (01) ==
LOC: LAB RH 05:50 → EDSTATUS 12:35
PROVIDERS: Family Medicine
DX: N39.0 Urinary tract infection, site not specified (principal)
CPT/HCPCS: 81001; 87077; 87086; 87186

== ENCOUNTER → 2019-11-14 | Outpatient (CLI) | payer OTHER ==
[2019-11-14 23:24] LABS: Bilirubin, Urine Neg (Neg); Blood, Urine 2+ (Neg); Glucose Qualitative, Urine Neg (Neg); Ketones, Urine Neg (Neg); Leukocyte Esterase, Urine 3+ (Neg); Nitrite, Urine Neg (Neg); Protein, Urine 2+ (Neg); Urobilinogen, Urine NORM (Normal)
[2019-11-14 23:37] LABS: Appearance, Urine Cloudy (Clear); Color, Urine Yellow (P-Yellow)
[2019-11-14 23:38] LABS: Bacteria Many /hpf; Red Blood Cells, Urine 0-2 /hpf (0-2); Squamous Epithelial Cells Rare /hpf (Few); White Blood Cells, Urine TNTC /hpf (0-5)
== END | disposition home or self-care (01) ==
LOC: LAB RH → EDSTATUS 10:53 → LAB RH 10:53
PROVIDERS: Family Medicine
DX: N39.0 Urinary tract infection, site not specified (principal)
CPT/HCPCS: 81001; 87077; 87086; 87186

== ENCOUNTER → 2019-12-16 | Outpatient (CLI) | payer OTHER | END | disposition home or self-care (01) | LOC: LAB 11:49 → LAB SHORT 11:49 | DX: R82.79 Other abnormal findings on microbiological examination of urine (principal) | CPT/HCPCS: 87086 ==

== ENCOUNTER → 2019-12-17 | Outpatient (CLI) | payer OTHER ==
[2019-12-17 11:16] LABS: International Normalized Ratio 2.47; Prothrombin Time Results 25.1 Sec (9.7-11.5)
== END | disposition home or self-care (01) ==
LOC: LAB RH 07:38 → EDSTATUS 11:02
PROVIDERS: Family Medicine
DX: I26.99 Other pulmonary embolism without acute cor pulmonale (principal)
CPT/HCPCS: 36415; 85610

== ENCOUNTER → 2020-02-19 | Outpatient (CLI) | payer OTHER | END | disposition home or self-care (01) | LOC: LAB SHORT 18:32 → LAB 18:32 | DX: Z51.81 Encounter for therapeutic drug level monitoring (principal); Z79.899 Other long term (current) drug therapy | CPT/HCPCS: G0480 ==

== ENCOUNTER 2021-03-23 19:01 | Emergency (ER) | payer OTHER ==
[~2021-03-23] VITALS: Ht 160 cm; Wt 151.9 kg
[2021-03-23 19:43] LABS: BASOPHILS ABSOLUTE AUTO 0.09 K/mm3 (0.00-0.23); BASOPHILS PERCENT AUTO 1 % (0-2); EOSINOPHILS ABSOLUTE AUTO 0.59 K/mm3 (0.00-0.68); EOSINOPHILS PERCENT AUTO 9 % (0-6); Hematocrit 41.2 % (33.0-51.0); Hemoglobin 12.6 g/dL (11.5-16.0); IMMATURE GRAN ABSOLUTE AUTO 0.01 K/mm3 (0.00-0.10); IMMATURE GRAN PERCENT AUTO 0 % (0-1); LYMPHOCYTES ABSOLUTE AUTO 1.86 K/mm3 (0.84-5.20); LYMPHOCYTES PERCENT AUTO 27 % (21-46); MONOCYTES ABSOLUTE AUTO 0.66 K/mm3 (0.16-1.47); MONOCYTES PERCENT AUTO 10 % (4-13); Mean Corpuscular HGB 29.9 pg (26.0-34.0); Mean Corpuscular HGB Conc 30.6 g/dL (31.5-36.5); Mean Corpuscular Volume 98 fL (80-100); Mean Platelet Volume 9.9 fL (9.1-12.4); NEUTROPHILS ABSOLUTE AUTO 3.75 K/mm3 (1.96-9.15); NEUTROPHILS PERCENT AUTO 54 % (41-73); Platelet Count 228 K/mm3 (150-400); RDW Coefficient Variation 15.3 % (11.7-14.2); RDW Standard Deviation 54.9 fL (35.1-46.3); Red Blood Cell Count 4.22 M/mm3 (3.80-5.20); White Blood Cell Count 6.96 K/mm3 (4.00-11.30)
[2021-03-23 20:03] LABS: Albumin, Blood 3.2 g/dL (3.4-5.0); Albumin/Globulin Ratio 0.8 (0.8-1.8); Bilirubin, Total 0.8 mg/dL (0.1-1.0); Bun/Creatinine Ratio 15.1 (12.0-20.0); Calcium, Blood 8.9 mg/dL (8.5-10.1); Creatinine, Blood 1.06 mg/dL (0.40-1.00); Globulin, Blood 3.9 g/dL (2.2-4.0); Potassium, Blood 3.7 mmol/L (3.5-5.5); Total Protein, Blood 7.1 g/dL (6.4-8.2)
== END 2021-03-23 22:35 | disposition left against medical advice (07) ==
LOC: ER 19:01
PROVIDERS: Physician Assistant
DX: R10.9 Unspecified abdominal pain (principal); Z53.21 Procedure and treatment not carried out due to patient leaving prior to being seen by health care provider; Z79.02 Long term (current) use of antithrombotics/antiplatelets; Z79.899 Other long term (current) drug therapy; Z79.01 Long term (current) use of anticoagulants
CPT/HCPCS: 36415; 80053; 83690; 85025; 99283

== ENCOUNTER 2021-04-01 21:06 | Observation (INO) | payer OTHER ==
[~2021-04-01] VITALS: Ht 157.5 cm; Wt 169.8 kg
[2021-04-01 21:42] LABS: BASOPHILS ABSOLUTE AUTO 0.09 K/mm3 (0.00-0.23); BASOPHILS PERCENT AUTO 1 % (0-2); EOSINOPHILS ABSOLUTE AUTO 0.51 K/mm3 (0.00-0.68); EOSINOPHILS PERCENT AUTO 5 % (0-6); Hematocrit 43.2 % (33.0-51.0); Hemoglobin 13.2 g/dL (11.5-16.0); IMMATURE GRAN ABSOLUTE AUTO 0.03 K/mm3 (0.00-0.10); IMMATURE GRAN PERCENT AUTO 0 % (0-1); LYMPHOCYTES ABSOLUTE AUTO 1.46 K/mm3 (0.84-5.20); LYMPHOCYTES PERCENT AUTO 15 % (21-46); MONOCYTES ABSOLUTE AUTO 0.92 K/mm3 (0.16-1.47); MONOCYTES PERCENT AUTO 9 % (4-13); Mean Corpuscular HGB 29.7 pg (26.0-34.0); Mean Corpuscular HGB Conc 30.6 g/dL (31.5-36.5); Mean Corpuscular Volume 97 fL (80-100); Mean Platelet Volume 10.1 fL (9.1-12.4); NEUTROPHILS ABSOLUTE AUTO 6.99 K/mm3 (1.96-9.15); NEUTROPHILS PERCENT AUTO 70 % (41-73); Platelet Count 237 K/mm3 (150-400); RDW Coefficient Variation 15.4 % (11.7-14.2); RDW Standard Deviation 54.4 fL (35.1-46.3); Red Blood Cell Count 4.45 M/mm3 (3.80-5.20)
[2021-04-01 22:03] LABS: Alanine Aminotransfer (ALT/SGP 14 U/L (12-78); Albumin, Blood 3.4 g/dL (3.4-5.0); Albumin/Globulin Ratio 0.9 (0.8-1.8); Alk Phos 131 U/L (50-136); Anion Gap 4 mmol/L (6-16); Aspartate Aminotrans (AST/SGOT 11 U/L (12-37); Bilirubin, Total 1.4 mg/dL (0.1-1.0); Blood Urea Nitrogen 15 mg/dL (8-24); CO2, Blood 31 mmol/L (21-32); Calcium, Blood 8.4 mg/dL (8.5-10.1); Chloride, Blood 102 mmol/L (98-108); Creatinine, Blood 0.88 mg/dL (0.40-1.00); Globulin, Blood 3.9 g/dL (2.2-4.0); Glomerular Filtration Rate >60 (60-); Glucose, Blood 118 mg/dL (70-99); Potassium, Blood 3.7 mmol/L (3.5-5.5); Sodium, Blood 137 mmol/L (136-145); Total Protein, Blood 7.3 g/dL (6.4-8.2); Troponin I 0.063 ng/mL (0.000-0.040)
[2021-04-02 00:36] LABS: International Normalized Ratio 4.34; Prothrombin Time Results 43.1 Sec (9.7-11.5)
--- NOTE | 2021-04-02 04:26 | NUR ---
SHIFT SUMMARY- PT. NEW ADMIT FROM ED W/CHF EXACEB. A&OX4, ON 2L NC AND CPAP @HS. PT. DENIED ANY PAIN OR DISCOMFORT DURING THE NIGHT. SLEPT T/O THE NIGHT, NO APPARENT DISTRESS NOTED. GILMORE CATHETER PATENT AND DRAINING. VSS. CALL LIGHT WITHIN REACH AND SIDE RAILS UPX2. WILL CONT TO MONITOR.
[2021-04-02 05:43] LABS: BASOPHILS PERCENT AUTO 1 % (0-2); EOSINOPHILS ABSOLUTE AUTO 0.44 K/mm3 (0.00-0.68); EOSINOPHILS PERCENT AUTO 5 % (0-6); Hematocrit 41.7 % (33.0-51.0); Hemoglobin 12.9 g/dL (11.5-16.0); IMMATURE GRAN ABSOLUTE AUTO 0.02 K/mm3 (0.00-0.10); IMMATURE GRAN PERCENT AUTO 0 % (0-1); LYMPHOCYTES ABSOLUTE AUTO 1.69 K/mm3 (0.84-5.20); LYMPHOCYTES PERCENT AUTO 21 % (21-46); MONOCYTES ABSOLUTE AUTO 0.87 K/mm3 (0.16-1.47); MONOCYTES PERCENT AUTO 11 % (4-13); Mean Corpuscular HGB Conc 30.9 g/dL (31.5-36.5); Mean Corpuscular Volume 97 fL (80-100); Mean Platelet Volume 9.9 fL (9.1-12.4); NEUTROPHILS ABSOLUTE AUTO 4.97 K/mm3 (1.96-9.15); NEUTROPHILS PERCENT AUTO 62 % (41-73); Platelet Count 210 K/mm3 (150-400); RDW Coefficient Variation 15.3 % (11.7-14.2); RDW Standard Deviation 54.2 fL (35.1-46.3); White Blood Cell Count 8.09 K/mm3 (4.00-11.30)
[2021-04-02 06:09] LABS: Alanine Aminotransfer (ALT/SGP 13 U/L (12-78); Albumin, Blood 3.1 g/dL (3.4-5.0); Albumin/Globulin Ratio 0.8 (0.8-1.8); Alk Phos 125 U/L (50-136); Anion Gap 4 mmol/L (6-16); Aspartate Aminotrans (AST/SGOT 13 U/L (12-37); Bilirubin, Total 1.6 mg/dL (0.1-1.0); Blood Urea Nitrogen 13 mg/dL (8-24); CO2, Blood 33 mmol/L (21-32); CPK Creatine Kinase 49 U/L (26-193); Calcium, Blood 8.3 mg/dL (8.5-10.1); Chloride, Blood 102 mmol/L (98-108); Creatinine, Blood 0.81 mg/dL (0.40-1.00); Globulin, Blood 3.8 g/dL (2.2-4.0); Glomerular Filtration Rate >60 (60-); Glucose, Blood 93 mg/dL (70-99); Potassium, Blood 3.3 mmol/L (3.5-5.5); Sodium, Blood 139 mmol/L (136-145); Total Protein, Blood 6.9 g/dL (6.4-8.2); Troponin I 0.071 ng/mL (0.000-0.040)
[2021-04-02 10:12] LABS: Source, Urine Catheter
[2021-04-02 10:34] LABS: Appearance, Urine Clear (Clear); Bilirubin, Urine Neg (Neg); Blood, Urine 2+ (Neg); Color, Urine Yellow (P-Yellow); Glucose Qualitative, Urine Neg (Neg); Ketones, Urine Neg (Neg); Leukocyte Esterase, Urine 1+ (Neg); Nitrite, Urine Pos (Neg); Protein, Urine 2+ (Neg); Urobilinogen, Urine 1+ (Normal); pH, Urine 6.5 (5.0-8.0)
[2021-04-02 10:45] LABS: Bacteria Many /hpf; Red Blood Cells, Urine 0-2 /hpf (0-2); Squamous Epithelial Cells Rare /hpf (Few)
--- NOTE | 2021-04-02 13:14 | NUR ---
JUST PRIOR TO WHEELING PT DOWN FOR DISCHARGE, TRIALED HER ON ROOM AIR, SHE HAS A CONCENTRATOR AT HOME BUT NO NC/PORTABLE OXYGEN, STATES SHE ISN'T NORMALLY ON IT DURING DAYTIME. STOOD UP TO PULL PANTS UP AND HER SATS WENT TO 74% ON ROOM AIR AND SHE GOT VERY SOB. BACK ON 2 L WITH GOOD RECOVERY. CALLED DR CRUZ, HE IS CANCELING DISCHARGE AND ORDERING PO DIURETICS WITH HOME OXYGEN EVAL. PT UPDATED, DISCHARGE CANCELED
--- NOTE | 2021-04-02 13:18 | NUR ---
PRIOR TO DISCHARGE CANCELATION, DR CRUZ GAVE ME VERBAL ORDER FOR PO ABX FOR DYSURIA WHICH WAS FAXED TO HER PHARMACY
[2021-04-02 14:04] LABS: Troponin I 0.056 ng/mL (0.000-0.040)
--- NOTE | 2021-04-02 15:26 | NUR ---
DISCHARGE SUMMARY PER FAMILY, PT'S BROTHER HAS PORTABLE OXYGEN THAT PT CAN BORROW UNTIL SHE GETS HOME WHERE SHE HAS THE CONCENTRATOR. SHE IS HOMEBOUND. CALLED DR CRUZ, HE WILL THEN DISCHARGE HER TODAY. PIV REMOVED, MEDS FAXED TO PHARMACY, PAPERWORK REVIEWED. GOING HOME WITH DAUGHTER BY CAR.
== END 2021-04-02 17:20 | disposition home or self-care (01) ==
LOC: ER 21:06 → MEDS 21:07 → ENPENDDIS 04-02 13:56 → MEDS 04-02 17:20
PROVIDERS: Emergency Medicine; Internal Medicine; ADMIT Internal Medicine
DX: I11.0 Hypertensive heart disease with heart failure (principal); I50.41 Acute combined systolic (congestive) and diastolic (congestive) heart failure; E66.2 Morbid (severe) obesity with alveolar hypoventilation; J44.9 Chronic obstructive pulmonary disease, unspecified; F32.9 Major depressive disorder, single episode, unspecified; I25.10 Atherosclerotic heart disease of native coronary artery without angina pectoris; E87.6 Hypokalemia; Z68.43 Body mass index [BMI] 50.0-59.9, adult; Z99.81 Dependence on supplemental oxygen; Z79.01 Long term (current) use of anticoagulants; Z86.718 Personal history of other venous thrombosis and embolism; Z86.711 Personal history of pulmonary embolism
CPT/HCPCS: 36415; 51702; 71045; 71260; 80053; 81001; 82550; 83880; 84484; 85025; 85610; 87077; 87086; 87186; 93005; 93010; 94660; 94761; 94762; 96374; 96376; 99285-25; A9270; C8929; G0378; J1940; Q9957; Q9967

== ENCOUNTER 2022-02-04 22:44 | Inpatient (IN) | payer OTHER ==
[~2022-02-04] VITALS: Ht 157.5 cm; Wt 154.3 kg
[2022-02-04 23:33] LABS: BASOPHILS ABSOLUTE AUTO 0.12 K/mm3 (0.00-0.23); BASOPHILS PERCENT AUTO 1 % (0-2); EOSINOPHILS ABSOLUTE AUTO 0.76 K/mm3 (0.00-0.68); EOSINOPHILS PERCENT AUTO 8 % (0-6); Hematocrit 39.8 % (33.0-51.0); Hemoglobin 12.2 g/dL (11.5-16.0); IMMATURE GRAN ABSOLUTE AUTO 0.03 K/mm3 (0.00-0.10); IMMATURE GRAN PERCENT AUTO 0 % (0-1); LYMPHOCYTES ABSOLUTE AUTO 2.49 K/mm3 (0.84-5.20); LYMPHOCYTES PERCENT AUTO 27 % (21-46); MONOCYTES ABSOLUTE AUTO 0.86 K/mm3 (0.16-1.47); MONOCYTES PERCENT AUTO 9 % (4-13); Mean Corpuscular HGB 30.4 pg (26.0-34.0); Mean Corpuscular HGB Conc 30.7 g/dL (31.5-36.5); Mean Corpuscular Volume 99 fL (80-100); Mean Platelet Volume 9.9 fL (9.1-12.4); NEUTROPHILS ABSOLUTE AUTO 5.12 K/mm3 (1.96-9.15); NEUTROPHILS PERCENT AUTO 55 % (41-73); NRBC ABSOLUTE 0.09 K/mm3 (0.00-0.02); Platelet Count 365 K/mm3 (150-400); RDW Coefficient Variation 15.1 % (11.7-14.2); RDW Standard Deviation 54.2 fL (35.1-46.3); Red Blood Cell Count 4.01 M/mm3 (3.80-5.20); White Blood Cell Count 9.38 K/mm3 (4.00-11.30)
[2022-02-04 23:48] LABS: Albumin, Blood 3.2 g/dL (3.4-5.0); Albumin/Globulin Ratio 0.8 (0.8-1.8); Bilirubin, Total 1.6 mg/dL (0.1-1.0); Bun/Creatinine Ratio 21.2 (12.0-20.0); Calcium, Blood 8.9 mg/dL (8.5-10.1); Creatinine, Blood 1.32 mg/dL (0.40-1.00); Globulin, Blood 4.2 g/dL (2.2-4.0); Potassium, Blood 4.7 mmol/L (3.5-5.5); Total Protein, Blood 7.4 g/dL (6.4-8.2)
[2022-02-04 23:58] LABS: Prothrombin Time Results 53.2 Sec (9.7-11.5)
[2022-02-05] LABS: Base Excess Venous 3.9 mmol/L; Bicarbonate Venous 26.8 mmol/L (24.0-30.0); PCO2 Venous 48.4 mmHg (38-42); PO2 Venous 40.1 mmHg (38-42); pH Blood Venous 7.39 (7.34-7.37)
[2022-02-05 00:01] LABS: International Normalized Ratio 5.68
[2022-02-05 00:10] LABS: Influenza A, PCR NEGATIVE (NEGATIVE); Influenza B, PCR NEGATIVE (NEGATIVE); Resp Syncytial Virus, PCR NEGATIVE (NEGATIVE); SARS-Cov-2 (COVID-19) PCR, MMC NEGATIVE (NEGATIVE)
[2022-02-05 02:16] LABS: Free Thyroxine 1.35 ng/dL (0.70-1.60); Triiodothyronine, Free 2.41 pg/mL (2.18-3.98)
[2022-02-05] MEDS ORDERED: ANORO ELLIPTA1 EAC1 INH (03:18)
[2022-02-05] MEDS ORDERED: SPIRONOLACTONE25 MG PO (03:19)
[2022-02-05 03:58] LABS: BASOPHILS PERCENT AUTO 1 % (0-2); EOSINOPHILS ABSOLUTE AUTO 0.26 K/mm3 (0.00-0.68); EOSINOPHILS PERCENT AUTO 3 % (0-6); Hematocrit 36.9 % (33.0-51.0); Hemoglobin 11.2 g/dL (11.5-16.0); IMMATURE GRAN ABSOLUTE AUTO 0.02 K/mm3 (0.00-0.10); IMMATURE GRAN PERCENT AUTO 0 % (0-1); LYMPHOCYTES ABSOLUTE AUTO 1.84 K/mm3 (0.84-5.20); LYMPHOCYTES PERCENT AUTO 20 % (21-46); MONOCYTES ABSOLUTE AUTO 0.85 K/mm3 (0.16-1.47); MONOCYTES PERCENT AUTO 9 % (4-13); Mean Corpuscular HGB 30.4 pg (26.0-34.0); Mean Corpuscular HGB Conc 30.4 g/dL (31.5-36.5); Mean Corpuscular Volume 100 fL (80-100); Mean Platelet Volume 9.9 fL (9.1-12.4); NEUTROPHILS ABSOLUTE AUTO 6.37 K/mm3 (1.96-9.15); NEUTROPHILS PERCENT AUTO 67 % (41-73); NRBC ABSOLUTE 0.05 K/mm3 (0.00-0.02); NRBC Auto 0.5 /100 WBC (0.0-0.2); Platelet Count 328 K/mm3 (150-400); RDW Coefficient Variation 15.1 % (11.7-14.2); RDW Standard Deviation 55.4 fL (35.1-46.3); Red Blood Cell Count 3.68 M/mm3 (3.80-5.20); White Blood Cell Count 9.44 K/mm3 (4.00-11.30)
[2022-02-05 04:15] LABS: Bun/Creatinine Ratio 22.7 (12.0-20.0); Creatinine, Blood 1.32 mg/dL (0.40-1.00); Potassium, Blood 4.7 mmol/L (3.5-5.5)
--- NOTE | 2022-02-05 05:23 | NUR ---
ASSUMED CARE OF PATIENT AT APPROXIMATELY 0303 FROM ED EDILMA SRIVASTAVA. PATIENT ARRIVED TO UNIT VIA STRETCHER; TRANSFER WITH 2 ASSIST FROM ED TO PCU STRETCHER; PATIENT REPORTS SHE USES A WALKER OR WHEELCHAIR AT BASELINE. PATIENT DENIES CP/PRESSURE, PAIN ELSEWHERE, NUMBNESS, TINGLING, DIZZINESS AND NAUSEA. PATIENT ALERT AND ORIENTED X4. AFIB 100-120'S ON TELE; OXYGEN SATURATION ABOVE 90% ON 3LPM VIA NC OR CPAP W/ 3LPM W/ CPAP. PIV S/L. ADMISSION COMPLETE.
--- NOTE | 2022-02-05 06:04 | NUR ---
PHOTOS TAKEN OF RASH ON LOWER BACK; PLACED IN CHART; HEART RATE MAINTAINING 130'S; WILL MEDICATE PRN PER ORDERS.
--- NOTE | 2022-02-05 06:31 | NUR ---
CALLED DR. LAU TO REPORT PATIENT HEART RATE 130'S AFTER PRN IV LOPRESSOR; ORDER FOR IV CARDIZEM 10MG X1.
--- NOTE | 2022-02-05 06:52 | NUR ---
CARDIZEM PUSH LOWERED HEART RATE TO 110'S
[2022-02-05 09:16] LABS: Source, Urine Clean Catch
[2022-02-05 09:29] LABS: Bilirubin, Urine Neg (Neg); Blood, Urine 1+ (Neg); Color, Urine Yellow (P-Yellow); Glucose Qualitative, Urine Neg (Neg); Ketones, Urine Neg (Neg); Leukocyte Esterase, Urine 2+ (Neg); Nitrite, Urine Pos (Neg); Protein, Urine 2+ (Neg); Specific Gravity, Urine 1.015 (1.003-1.022); Urobilinogen, Urine NORM (Normal)
--- NOTE | 2022-02-05 09:37 | NUR ---
AM NOTE: PATIENT ALERT AND ORIENTED X4. PERRLA. DENIES NUMBNESS/TINGLING. OVERALL WEAK ON FEET. USES WALKER AT BASELINE. ABLE TO TRANSFER TO BSC. ON 3L O2 NASAL CANNULA AT BASELINE AND CPAP AT NIGHT WITH 3L O2 BLEED IN. SOB WHEN UP MOVING AROUND. DENIES COUGH. TELE SHOWING AFIB WITH HR 110'S. DENIES CHEST PAIN/PRESSURE. BP STABLE. MORN MEDS GIVEN. HR UP TO 140'S WHEN UP TO BSC. DENIES ABDOMINAL PAIN/NAUSEA. EATING AND DRINKING FLUIDS. URINE SAMPLE SENT TO LAB. RASH TO LOWER BACK AND SOME REDNESS ON CHEST. PATIENT STATES RASH IS CHRONIC; COMES AND GOES; ITCHY. PICTURE IN CHART. PLAN FOR ECHO TODAY. DENIES NEEDS AT THIS TIME. CALL LIGHT IN REACH. WILL CONTINUE TO MONITOR.
[2022-02-05 09:52] LABS: Bacteria Many /hpf; Red Blood Cells, Urine 0-2 /hpf (0-2); Squamous Epithelial Cells Mod /hpf (Few)
[2022-02-05 09:53] LABS: Appearance, Urine Hazy (Clear)
--- NOTE | 2022-02-05 10:39 | NUR ---
UPDATE: DR. TAVERAS BY TO SEE PATIENT. NEW ORDERS FOR COREG 6.25 PO BID TO BE STARTED WITH 1ST DOSE NOW AND METOPROLOL PO TO BE DC'D. ORDERS IN PLACE. 1ST DOSE OF COREG GIVEN. SALES TRAINER IN ROOM AT THIS TIME.
--- NOTE | 2022-02-05 17:07 | NUR ---
SHIFT SUMMARY: NO ACUTE CHANGES. SEE PREVIOUS NOTES. PATIENT REMAINS ON 3L NASAL CANNULA AT BASELINE, SATING MID 90'S. TELE SHOWING AFIB WITH HR AVERAGING 90-110'S. BP STABLE. DENIES DIZZINESS WHEN UP TO BEDSIDE COMMODE. DENIES CHEST PAIN/PRESSURE. UP TO BSC WITH STANDBY ASSIST. FAMILY IN TO VISIT. UPDATED WITH PATIENT PERMISSION. EATING AND DRINKING WELL. CALL LIGHT IN REACH. PATIENT ABLE TO TURN SELF IN BED; ASSISTING WITH BOOSTS. DENIES OVERALL PAIN AND NEED FOR ANY PRN GABAPENTIN. WILL CONTINUE TO MONITOR AND REPORT OFF.
--- NOTE | 2022-02-05 21:03 | NUR ---
UPDATE PT UNABLE TO VOID, BLADDER SCAN SHOWS 725 ML URINE. ORDERS FROM PHYSICIAN FOR GILMORE,NYSTATIN. PHYSICIAN NOTIFIED OF PT'S BLOOD PRESSURE 83/62 MAP OF 70. ORDERS TO CONT TO MONITOR.
[2022-02-05 21:48] LABS: Source, Urine Foley catheter
[2022-02-05 21:54] LABS: Bilirubin, Urine Neg (Neg); Blood, Urine Neg (Neg); Glucose Qualitative, Urine Neg (Neg); Ketones, Urine Neg (Neg); Leukocyte Esterase, Urine 1+ (Neg); Nitrite, Urine Pos (Neg); Protein, Urine 2+ (Neg); Urobilinogen, Urine NORM (Normal)
[2022-02-05 22:09] LABS: Appearance, Urine Hazy (Clear); Bacteria Many /hpf; Color, Urine Yellow (P-Yellow); Hyaline Casts 25-50 /lpf (0-2); Red Blood Cells, Urine Not Seen /hpf (0-2); Squamous Epithelial Cells Few /hpf (Few)
--- NOTE | 2022-02-06 00:36 | NUR ---
UPDATE PHYSICIAN NOTIFIED OF PT'S LOW BP. MAP OF 64. ORDERS FOR ONE TIME DOSE OF 500 ML BOLUS TO BE GIVEN, SEE EMAR.
[2022-02-06 04:20] LABS: Prothrombin Time Results 70.2 Sec (9.7-11.5)
[2022-02-06 04:25] LABS: International Normalized Ratio 7.64
[2022-02-06 05:11] LABS: BASOPHILS ABSOLUTE AUTO 0.12 K/mm3 (0.00-0.23); BASOPHILS PERCENT AUTO 1 % (0-2); EOSINOPHILS ABSOLUTE AUTO 0.64 K/mm3 (0.00-0.68); EOSINOPHILS PERCENT AUTO 6 % (0-6); Hematocrit 36.3 % (33.0-51.0); Hemoglobin 10.8 g/dL (11.5-16.0); IMMATURE GRAN ABSOLUTE AUTO 0.02 K/mm3 (0.00-0.10); IMMATURE GRAN PERCENT AUTO 0 % (0-1); LYMPHOCYTES ABSOLUTE AUTO 1.89 K/mm3 (0.84-5.20); LYMPHOCYTES PERCENT AUTO 19 % (21-46); MONOCYTES ABSOLUTE AUTO 1.02 K/mm3 (0.16-1.47); MONOCYTES PERCENT AUTO 10 % (4-13); Mean Corpuscular HGB 29.8 pg (26.0-34.0); Mean Corpuscular HGB Conc 29.8 g/dL (31.5-36.5); Mean Corpuscular Volume 100 fL (80-100); Mean Platelet Volume 9.9 fL (9.1-12.4); NEUTROPHILS ABSOLUTE AUTO 6.36 K/mm3 (1.96-9.15); NEUTROPHILS PERCENT AUTO 63 % (41-73); NRBC ABSOLUTE 0.05 K/mm3 (0.00-0.02); NRBC Auto 0.5 /100 WBC (0.0-0.2); Platelet Count 327 K/mm3 (150-400); RDW Coefficient Variation 15.4 % (11.7-14.2); RDW Standard Deviation 55.6 fL (35.1-46.3); Red Blood Cell Count 3.63 M/mm3 (3.80-5.20); White Blood Cell Count 10.05 K/mm3 (4.00-11.30)
--- NOTE | 2022-02-06 05:17 | NUR ---
SHIFT SUMMARY PT ALERT AND ORIENTED X 4. HR STABLE, TACHY WITH EXERTION. BP HYPOTENSIVE AT TIMES, PHYSICIAN NOTIFIED. SEE NOTES AND EHR FOR ORDERS. BP CURRENLTY STABLE. MAP ABOVE 65. NO CP OR PRESSURE. PT REFUSING TURNS DURING SHIFT. PT WORE CPAP WHILE SLEEPING WITH 4 L BLEED IN, OXYGEN SATURATION MAINTAINED ABOVE 92%. MANDO ORDERED D/T RETENTION. PATENT AND TO GRAVITY DRAIN. CALL LIGHT WITHIN REACH. BED ALARM IN PLACE. PHYSICIAN NOTIFIED OF CRITICAL LAB VALUE, SEE EHR. WILL CONT TO MONITOR UNTIL REPORT GIVEN TO DAYSHIFT RN.
[2022-02-06 05:23] LABS: Anion Gap 5 mmol/L (6-16); Blood Urea Nitrogen 34 mg/dL (8-24); CO2, Blood 31 mmol/L (21-32); Calcium, Blood 8.7 mg/dL (8.5-10.1); Chloride, Blood 100 mmol/L (98-108); Creatinine, Blood 1.31 mg/dL (0.40-1.00); Glomerular Filtration Rate 41 (60-); Glucose, Blood 91 mg/dL (70-99); Phosphorus, Blood 3.4 mg/dL (2.5-4.9); Potassium, Blood 4.7 mmol/L (3.5-5.5); Sodium, Blood 136 mmol/L (136-145)
--- NOTE | 2022-02-06 17:41 | NUR ---
SHIFT SUMMARY ASSUMED CARE OF PATIEINT AT APPROX 1425; RECEIVED REPORT FROM MEENA FRANCE. I AM IN AGREEMENT WITH PREVIOUS INSIDE SALES LEAD. SPO2 >90% ON 3L O2 VIA NC. AFTER NYSTATIN APPLIED THIS AFTERNOON PT REPORTS INCREASE DISCOMFORT AND BURNING, REMOVED. NOTIFIED DR TAVERAS OF 1600 BPs AND BURING FROM NYSTATIN POWDER; NEW ORDER TO D/C NYSTATIN CREAM AND TORSEMIDE; NEW ORDER FOR MICONAZOLE POWDER. OTHER VSS. NO OTHER ACUTE CHANGES. WILL CONTINUE TO MONITOR UNTIL REPORT GIVEN TO ONCOMING RN.
[2022-02-07 04:49] LABS: Prothrombin Time Results 60.8 Sec (9.7-11.5)
[2022-02-07 05:11] LABS: International Normalized Ratio 6.55
--- NOTE | 2022-02-07 05:32 | NUR ---
SHIFT SUMMARY PT ALERT AND ORIENTED X 4. HR STABLE. BP STABLE. MAP ABOVE 65. NO CP OR PRESSURE. PT ABLE TO TURN SELF IN BED. OXYGEN SATURATION MAINTAINED ABOVE 92% ON CPAP WITH 4 L BLEED IN. PT SLEPT T/O SHIFT. GILMORE TO GRAVITY DRAIN. NO ACUTE CHANGES DURING SHIFT. CALL LIGHT IN REACH. BED ALARM IN PLACE. WILL CONT TO MONITOR UNTIL REPORT GIVEN TO DAYSHIFT RN.
--- NOTE | 2022-02-07 09:15 | NUR ---
AM NOTE PATIENT IS A&0 X4, COOPERATIVE W CARE THIS AM. PATIENT REMAINS ON TELE AFIB 110-120'S PER RESIDENT CARE SUPERVISOR. VSS OTHERWISE. PATIENT DENIES CP, BUT REPORTS SOME UNCHANGED CHEST DISCOMFORT ONSET OF HER AFIB/ADMISSION. PATIENT DOES REPORT SOME SOB AND DYSPNEA ON EXERTION BUT REPORTS IT IS CHRONIC IN NATURE. SPO2 100% AT 3L OF O2 VIA NC. PATIENT DENIES N/V, NUBMNESS/TINGLING SENSATION. PATIENT STARTED HER METOPROLOL THIS AM AND IS TOLERATING IT WELL. PATIENT IS RECEIVING AM CARE. GILMORE INTACT AND DRAINING W GRAVITY.
--- NOTE | 2022-02-07 10:58 | NUR ---
DR TAVERAS AT BEDSIDE THIS AM, NEW ORDERS FOR FLUID RESTRICTION AND MED WITH TELE ORDERS. WILL CONTINUE TO MONITOR.
--- NOTE | 2022-02-07 17:18 | NUR ---
SHIFT SUMMARY PATIENT REMAINED A&O AND COOPERATIVE WITH CARE THROUGHOUT THE SHIFT X4. PATIENT IS ON TELE W AFIB IN 105-110'S. SPO2 REMAINED @100% ON 3L O2 VIA NC. VSS. PATIENT WAS PLACED ON FLUID RESTRICTION PER DR TAVERAS. GILMORE INTACT DRAINING PER GRAVITY. PATIENT DENIES CHEST PAIN/PRESSURE, BUT DOES C/O OF SOB WITH EXERTION CHRONIC IN NATURE. PATIENT DENIES NUMBNESS/TINGLING SENSATION. WILL CONTINUE TO MONITOR UNTIL SHIFT CHANGE.
--- NOTE | 2022-02-07 18:35 | NUR ---
I HAVE REVIEWED THE NURSING STUDENTS DOCUMENTATION AND AM IN AGREEMENT. PT HR UP TO 120-130 WITH ACTIVITY. NO OTHER S/SX OF DISTRESS NOTED. PT EDUCATED ON FLUID RESTRICTION. NO OTHER ACUTE CHANGES. WILL CONTINUE TO MONITOR.
[2022-02-08 04:32] LABS: BASOPHILS ABSOLUTE AUTO 0.13 K/mm3 (0.00-0.23); BASOPHILS PERCENT AUTO 1 % (0-2); EOSINOPHILS ABSOLUTE AUTO 0.59 K/mm3 (0.00-0.68); EOSINOPHILS PERCENT AUTO 7 % (0-6); Hematocrit 34.5 % (33.0-51.0); Hemoglobin 10.9 g/dL (11.5-16.0); IMMATURE GRAN ABSOLUTE AUTO 0.01 K/mm3 (0.00-0.10); IMMATURE GRAN PERCENT AUTO 0 % (0-1); LYMPHOCYTES ABSOLUTE AUTO 2.02 K/mm3 (0.84-5.20); LYMPHOCYTES PERCENT AUTO 22 % (21-46); MONOCYTES ABSOLUTE AUTO 0.89 K/mm3 (0.16-1.47); MONOCYTES PERCENT AUTO 10 % (4-13); Mean Corpuscular HGB 30.7 pg (26.0-34.0); Mean Corpuscular HGB Conc 31.6 g/dL (31.5-36.5); Mean Corpuscular Volume 97 fL (80-100); Mean Platelet Volume 9.5 fL (9.1-12.4); NEUTROPHILS ABSOLUTE AUTO 5.36 K/mm3 (1.96-9.15); NEUTROPHILS PERCENT AUTO 60 % (41-73); NRBC ABSOLUTE 0.04 K/mm3 (0.00-0.02); NRBC Auto 0.4 /100 WBC (0.0-0.2); Platelet Count 316 K/mm3 (150-400); RDW Coefficient Variation 15.3 % (11.7-14.2); RDW Standard Deviation 53.1 fL (35.1-46.3); Red Blood Cell Count 3.55 M/mm3 (3.80-5.20)
[2022-02-08 04:48] LABS: Bun/Creatinine Ratio 25.3 (12.0-20.0); Calcium, Blood 8.7 mg/dL (8.5-10.1); Creatinine, Blood 0.99 mg/dL (0.40-1.00); Magnesium, Blood 2.2 mg/dL (1.6-2.4); Potassium, Blood 4.5 mmol/L (3.5-5.5)
[2022-02-08 05:07] LABS: Prothrombin Time Results 42.5 Sec (9.7-11.5)
[2022-02-08 05:28] LABS: International Normalized Ratio 4.46
--- NOTE | 2022-02-08 05:51 | NUR ---
SHIFT SUMMARY PT ALERT AND ORIENTED X4. AFEBRILE. HR AFIB 90'S-110'S. BP STABLE. ON 3L NC WHILE AWAKE, MAINTAINING SATS OVER 98%. ON 3L CPAP WHILE ASLEEP, MAINTAINING SATS OVER 98%. GILMORE IN PLACE DRAINING YELLOW URINE TO GRAVITY. NO C/O PAIN OR DISCOMFORT. IN BED SLEEPING WITH CALL ALARM AT SIDE. WILL CONTINUE TO MONITOR UNTIL REPORT GIVEN TO DAYSHIFT RN
--- NOTE | 2022-02-08 07:33 | NUR ---
AM NOTE PT APPEARS TO BE SLEEPING. WAKES EASILY TO VERBAL STIMULI. PT ALERT, ORIENTED x4; CALM AND COOPERATIVE WITH CARE. PT RESTING IN BED, UP WITH SBA WITH WALKER TO RECLINER. PT REPORTS GENERALIZED BODY ACHES, DENIES NEED FOR MEDICATION AT THIS TIME. PT DENIES CHEST PAIN/PRESSURE, NAUSEA, DIZZINESS AND NUMB/TINGLING. PT SOB WITH ACTIVITY, SPO2 >90% ON 3L O2 VIA NC AT REST AND WITH ACTIVITY; LS CLEAR T/O WITH DIM BASES. TELE AFIB 100-120 THIS AM DURING ACTIVITY; BP STABLE. 1+ EDEMA NOTED TO BLE. ABS ROUND, SOFT, NONTENDER, HYPOACTIVE BT x4 QUAD. FOELY IN PLACE, PATENT AND DRAINING. RASH NOTED UNDER BREASTS AND PANIS, LOWER BACK AND CHEST. ABRAISION TO LEFT GLUTEAL NOTED, DRESSING C/D/I. OTHER VSS. PT EXPRESSES THE DESIRE TO GO HOME TODAY. NO S/SX OF DISTRESS. NO ACUTE CHANGES NOTED. WILL CONTINUE TO MONITOR.
[2022-02-08] MEDS ORDERED: ANTIFUNGAL POWD71 GM TOP (10:52)
[2022-02-08] MEDS ORDERED: CEPH500 PO (11:51)
[2022-02-08] MEDS ORDERED: VISBIOME 112.51 EACH PO (11:52)
--- NOTE | 2022-02-08 15:29 | NUR ---
STARTED BLADDER TRAINING THIS AM, PT REPORTS NEEDING TO PEE, RELEASED, GILMORE REMOVED. AWAITING FOR PT TO VOID PRIOR TO DISCHARGE. WILL CONTINUE TO MONITOR.
--- NOTE | 2022-02-08 17:16 | NUR ---
SHIFT SUMMARY NO S/SX OF DISTRESS NOTED. PT HAS NOT VOIDED POST GILMORE REMOVAL, NOTIFIED DR TAVERAS, NEW ORDERS FOR BLADDER SCAN, 0 ML FOR BLADDER SCAN; NOTIFIED DR TAVERAS, NEW ORDER TO CONINTUE WITH DISCHARGE; EDUCATED PT AND DAUGHTER THAT IF NO URINE BY TOMRROW AM CALL PCP; IF SHE FEELS LIKE HER BLADDER IS FULL TO COME BACK TO ER AND OK TO GO OVER FLUID RESTRICTION TONIGHT. NOTIFIED DR MCCRAY AT [facility] TODAY. BP SOFT, MAP >65; CONTINUE WITH D/C PLANS. PT EDUCATED ON DISCHARGE SUMMARY, FLUID RESTRICTION, FOLLOW UP APPOINTMENT AND MEDICATIONS. PRESCRIPTIONS FAXED TO [facility] PER PT REQUEST. [place]AL[place] HOME O2 TANK AT BEDSIDE. AWAITING RIDE HOME. REPORT GIVEN TO EDILMA HYLTON.
--- NOTE | 2022-02-08 17:54 | NUR ---
DISCHARGE PT LEFT ROOM VIA WHEELCHAIR AT [id number].
== END 2022-02-08 17:54 | disposition home or self-care (01) | DRG 308 ==
LOC: ER 22:44 → PCU 22:45
PROVIDERS: Emergency Medicine; Internal Medicine; ADMIT Family Medicine
DX: I48.91 Unspecified atrial fibrillation (principal); I50.23 Acute on chronic systolic (congestive) heart failure; I13.0 Hypertensive heart and chronic kidney disease with heart failure and stage 1 through stage 4 chronic kidney disease, or unspecified chronic kidney disease; I24.8 Other forms of acute ischemic heart disease; Z68.43 Body mass index [BMI] 50.0-59.9, adult; N17.9 Acute kidney failure, unspecified; N39.0 Urinary tract infection, site not specified; Z20.822 Contact with and (suspected) exposure to COVID-19; N18.2 Chronic kidney disease, stage 2 (mild); J44.9 Chronic obstructive pulmonary disease, unspecified; F32.A Depression, unspecified; I25.10 Atherosclerotic heart disease of native coronary artery without angina pectoris; E66.01 Morbid (severe) obesity due to excess calories; I27.20 Pulmonary hypertension, unspecified; M79.2 Neuralgia and neuritis, unspecified; R94.6 Abnormal results of thyroid function studies; R79.1 Abnormal coagulation profile; G47.30 Sleep apnea, unspecified; I08.1 Rheumatic disorders of both mitral and tricuspid valves; B95.1 Streptococcus, group B, as the cause of diseases classified elsewhere; I25.2 Old myocardial infarction; Z87.820 Personal history of traumatic brain injury; Z79.01 Long term (current) use of anticoagulants; Z79.899 Other long term (current) drug therapy; Z79.891 Long term (current) use of opiate analgesic; Z99.81 Dependence on supplemental oxygen; Z86.711 Personal history of pulmonary embolism
CPT/HCPCS: 0241U; 36415; 51702; 71045; 80048; 80053; 80069; 81001; 82803; 83735; 83880; 84145; 84439; 84443; 84481; 84484; 85025; 85610; 87077; 87086; 87147; 87186; 93005; 93010; 94640; 94660; 94664; 94761; 94762; 96374; 96375; 96376; 99285-25; A9270; C1751; C8929; G0378; J1940; J7030; Q9957

== ENCOUNTER 2022-02-16 21:05 | Inpatient (IN) | payer OTHER ==
[~2022-02-16] VITALS: Ht 157.5 cm; Wt 154.9 kg
[~2022-02-16 21:05] MED LIST changes: -ALBU2.5V5 INH; +ALBUTEROL0.63 MG/3 NEB; +ANTIFUNGAL POWD71 GM TOP; -METO25ER PO; +METO50ER PO; +SPIRONOLACTONE25 MG PO; +VISBIOME 112.51 EACH PO
[2022-02-16 21:33] LABS: BASOPHILS ABSOLUTE AUTO 0.11 K/mm3 (0.00-0.23); BASOPHILS PERCENT AUTO 1 % (0-2); EOSINOPHILS ABSOLUTE AUTO 0.52 K/mm3 (0.00-0.68); EOSINOPHILS PERCENT AUTO 5 % (0-6); Hematocrit 43.6 % (33.0-51.0); Hemoglobin 13.2 g/dL (11.5-16.0); IMMATURE GRAN ABSOLUTE AUTO 0.03 K/mm3 (0.00-0.10); IMMATURE GRAN PERCENT AUTO 0 % (0-1); LYMPHOCYTES ABSOLUTE AUTO 1.93 K/mm3 (0.84-5.20); LYMPHOCYTES PERCENT AUTO 19 % (21-46); MONOCYTES ABSOLUTE AUTO 1.32 K/mm3 (0.16-1.47); MONOCYTES PERCENT AUTO 13 % (4-13); Mean Corpuscular HGB 30.3 pg (26.0-34.0); Mean Corpuscular HGB Conc 30.3 g/dL (31.5-36.5); Mean Corpuscular Volume 100 fL (80-100); Mean Platelet Volume 9.7 fL (9.1-12.4); NEUTROPHILS ABSOLUTE AUTO 6.43 K/mm3 (1.96-9.15); NEUTROPHILS PERCENT AUTO 62 % (41-73); NRBC ABSOLUTE 0.12 K/mm3 (0.00-0.02); NRBC Auto 1.2 /100 WBC (0.0-0.2); Platelet Count 266 K/mm3 (150-400); RDW Coefficient Variation 16.1 % (11.7-14.2); RDW Standard Deviation 58.6 fL (35.1-46.3); Red Blood Cell Count 4.36 M/mm3 (3.80-5.20); White Blood Cell Count 10.34 K/mm3 (4.00-11.30)
[2022-02-16 21:48] LABS: Albumin/Globulin Ratio 0.6 (0.8-1.8); Bilirubin, Total 0.9 mg/dL (0.1-1.0); Bun/Creatinine Ratio 30.7 (12.0-20.0); Calcium, Blood 9.3 mg/dL (8.5-10.1); Creatinine, Blood 1.37 mg/dL (0.40-1.00); Globulin, Blood 4.7 g/dL (2.2-4.0); Potassium, Blood 5.4 mmol/L (3.5-5.5); Total Protein, Blood 7.7 g/dL (6.4-8.2)
[2022-02-16] MEDS ORDERED: HYDROCODONE-AC1 EA17 PO (23:36)
[2022-02-16] MEDS ORDERED: NEURONTIN300 MG PO (23:37)
[2022-02-16] MEDS ORDERED: SOAANZ20 MG PO (23:37)
[2022-02-16] MEDS ORDERED: CYMBALTA30 M2 PO (23:37)
[2022-02-16] MEDS ORDERED: JANTOVEN2 MG PO (23:37)
[2022-02-16] MEDS ORDERED: KLOR-CON 1010 ME7 PO (23:38)
[2022-02-16] MEDS ORDERED: OXYB5 PO (23:38)
[2022-02-16 23:52] LABS: Influenza A, PCR NEGATIVE (NEGATIVE); Influenza B, PCR NEGATIVE (NEGATIVE); Resp Syncytial Virus, PCR NEGATIVE (NEGATIVE); SARS-Cov-2 (COVID-19) PCR, MMC NEGATIVE (NEGATIVE)
[2022-02-17 00:14] LABS: Magnesium, Blood 2.3 mg/dL (1.6-2.4)
[2022-02-17 01:11] LABS: BASOPHILS ABSOLUTE AUTO 0.09 K/mm3 (0.00-0.23); BASOPHILS PERCENT AUTO 1 % (0-2); EOSINOPHILS ABSOLUTE AUTO 0.38 K/mm3 (0.00-0.68); EOSINOPHILS PERCENT AUTO 4 % (0-6); Hematocrit 37.8 % (33.0-51.0); Hemoglobin 11.5 g/dL (11.5-16.0); IMMATURE GRAN ABSOLUTE AUTO 0.04 K/mm3 (0.00-0.10); IMMATURE GRAN PERCENT AUTO 0 % (0-1); LYMPHOCYTES ABSOLUTE AUTO 1.91 K/mm3 (0.84-5.20); LYMPHOCYTES PERCENT AUTO 19 % (21-46); MONOCYTES ABSOLUTE AUTO 1.25 K/mm3 (0.16-1.47); MONOCYTES PERCENT AUTO 12 % (4-13); Mean Corpuscular HGB Conc 30.4 g/dL (31.5-36.5); Mean Corpuscular Volume 99 fL (80-100); Mean Platelet Volume 9.3 fL (9.1-12.4); NEUTROPHILS ABSOLUTE AUTO 6.66 K/mm3 (1.96-9.15); NEUTROPHILS PERCENT AUTO 64 % (41-73); NRBC ABSOLUTE 0.06 K/mm3 (0.00-0.02); NRBC Auto 0.6 /100 WBC (0.0-0.2); Platelet Count 260 K/mm3 (150-400); RDW Coefficient Variation 16.1 % (11.7-14.2); RDW Standard Deviation 57.5 fL (35.1-46.3); Red Blood Cell Count 3.83 M/mm3 (3.80-5.20); White Blood Cell Count 10.33 K/mm3 (4.00-11.30)
[2022-02-17] MEDS ORDERED: WARF7.5 PO (01:19)
[2022-02-17 01:27] LABS: International Normalized Ratio 1.72; Prothrombin Time Results 17.4 Sec (9.7-11.5)
[2022-02-17 01:29] LABS: Albumin, Blood 2.8 g/dL (3.4-5.0); Albumin/Globulin Ratio 0.7 (0.8-1.8); Bilirubin, Total 0.8 mg/dL (0.1-1.0); Bun/Creatinine Ratio 30.9 (12.0-20.0); Creatinine, Blood 1.39 mg/dL (0.40-1.00); Globulin, Blood 4.1 g/dL (2.2-4.0); Potassium, Blood 4.9 mmol/L (3.5-5.5); Total Protein, Blood 6.9 g/dL (6.4-8.2)
[2022-02-17 02:37] LABS: Source, Urine Clean Catch
[2022-02-17 02:41] LABS: Bilirubin, Urine Neg (Neg); Blood, Urine 2+ (Neg); Glucose Qualitative, Urine Neg (Neg); Ketones, Urine Neg (Neg); Leukocyte Esterase, Urine 1+ (Neg); Nitrite, Urine Neg (Neg); Protein, Urine Neg (Neg); Specific Gravity, Urine 1.015 (1.003-1.022); Urobilinogen, Urine 1+ (Normal)
[2022-02-17 02:54] LABS: Amorphous Mod (0-Heavy); Appearance, Urine Hazy (Clear); Bacteria Mod /hpf; Color, Urine Yellow (P-Yellow); Squamous Epithelial Cells Few /hpf (Few)
--- NOTE | 2022-02-17 04:10 | NUR ---
ADMISSION: PT IS A/OX4. TELE" AFIB/105 W/ BBB. O2: 4L, BUT PT's BASELINE IS 3L. DUE TO WEAKNESS THE PT IS A SBA TO [facility] [place]. SHE EXHIBITS SOB/WEAKNESS WITH EXERTION. SHE STATES THAT BOTH HANDS ARE NEWLY WEAK W/ N/T. SHE DOES HAVE AN EXTENSIVE MEDICAL/SURGICAL HX. AND SHE WAS RECENTLY IN THIS HOSPITAL FOR SOB. SHE IS VERY PLEASANT AND COOPERATIVE WITH ALL CARE. HER CALL LIGHT IS WITHIN REACH AND WE'LL CONTINUE TO MONITOR.
--- NOTE | 2022-02-17 05:44 | NUR ---
SHIFT SUMMARY: PT IS A/OX4. ON 4L OF O2. SHE HAS NOT HAD ANY CHANGES SINCE HER ADMISSION TO THE FLOOR. SHE DID RECEIVE HER SCHEDULED LASIX AND WE WERE ABLE TO GET A UA SENT DOWN TO LAB. NO OTHER CHANGES TO REPORT.
[2022-02-17] MEDS ORDERED: ANORO ELLIPTA1 EAC1 INH (18:30)
[2022-02-17] MEDS ORDERED: Ventolin/Prove6.7 GM INH (18:31)
--- NOTE | 2022-02-17 18:31 | NUR ---
SHIFT SUMMARY PATIENT ALERT AND ORIENTED, PLEASANT AND COOPERATIVE WITH CARE. THE PATIENT CALLS APPROPRIATELY. PATIENT MEDICATED X1 FOR PAIN. CURRENTLY ON 4LPM OF OXYGEN. PATIENT WAS UP TO WORK WITH PHYSICAL THERAPY AND OCCUPATIONAL THERAPY. 1 ASSIST TO THE BSC. PATIENT HAD FIRST PART OF STRESS TEST TODAY. THE SECOND PART OF THE TEST WILL TAKE PLACE TOMORROW. PATIENT WILL BE NPO AFTER MIDNIGHT AND NO CAFFEINE AFTER 1900. AFIB @ 106 ON TELE. NO EVENTS. NO CHEST PAIN NOTED. CALL LIGHT WITHIN REACH. BED IN LOWEST POSITION. FAMILY AT BEDSIDE.
--- NOTE | 2022-02-18 04:57 | NUR ---
SHIFT SUMMARY: PT IS A/OX4. SHE IS A SBA TO THE [facility] [place] TELE: SHE REMAINED IN AFIB W/ HR 120s-130s. THE MD WAS NOTIFIED AND THE PT WAS GIVEN IV METOPROLOL. HER HR HAS LOWERED A BIT INTO THE 110s-120s. SHE IS ON 3L OF O2 (HER BASELINE). SHE HAS NO C/O PAIN. THE PT USES THE CALL LIGHT APPROPRIATELY AND WE'LL CONTINUE TO MONITOR.
[2022-02-18 05:50] LABS: International Normalized Ratio 1.97; Prothrombin Time Results 19.8 Sec (9.7-11.5)
--- NOTE | 2022-02-18 17:40 | NUR ---
PATIENT HEART RATE AND RHYTHM ERRATIC THIS AM. PROVIDER ORDERED IV METOPROLOL, AND THEN METOPROLOL PO. RATE HAS COME DOWN SOMEWHAT. PATIENT DOES NOT HAVE CHEST PAIN BUT IS VERY SOB ESPECIALLY WITH MOVEMENT/EXERSION. 2ND PART OF CARDIAC STRESS TEST SHOWS NO ISCHEMIA. SHE HAS SOME RIGHT SHOULDER PAIN DUE TO ARTHRITIS TODAY. TROPONIN WAS 136 AND TESTING IS SHOWING EF OF 35-40. SHE IS ABLE TO GET UP TO BED SIDE COMMODE AND HER MOOD IS FRIENDLY, POLITE AND COOPERATIVE.
--- NOTE | 2022-02-18 23:00 | NUR ---
PATIENT'S HR MAINTAINING 120-130 A FIB, PATIENT REPORTING SHORTNESS OF BREATH AND IS DIAPHORETIC, BP 90S SYSTOLIC, DR. ADAME NOTIFIED, ORDERS OBTAINED FOR TRANSFER TO PCU FOR CLOSER MONITORING AND IV DIGOXIN ADMINISTRATOIN, ORDERS PLACED, PATIENT UPDATED ON PLAN OF CARE, REPORT CALLED TO PCU STAFF
[2022-02-19 04:30] LABS: International Normalized Ratio 2.31
[2022-02-19 04:36] LABS: Albumin, Blood 2.8 g/dL (3.4-5.0); Albumin/Globulin Ratio 0.8 (0.8-1.8); Bilirubin, Direct 0.7 mg/dL (0.0-0.3); Bilirubin, Indirect 0.9 mg/dL (0.1-0.7); Bilirubin, Total 1.6 mg/dL (0.1-1.0); Bun/Creatinine Ratio 38.2 (12.0-20.0); Calcium, Blood 9.1 mg/dL (8.5-10.1); Creatinine, Blood 1.23 mg/dL (0.40-1.00); Globulin, Blood 3.7 g/dL (2.2-4.0); Phosphorus, Blood 3.6 mg/dL (2.5-4.9); Potassium, Blood 4.4 mmol/L (3.5-5.5); Total Protein, Blood 6.5 g/dL (6.4-8.2)
--- NOTE | 2022-02-19 05:00 | NUR ---
SHIFT SUMMARY PT TO ROOM FROM MEDICAL FLOOR DUE TO AFIB RVR AND HYPOTENSION. UPON ARRIVAL, PT AXO, IN AFIB 120'S, SBP >100. IV DIGOXIN LOADED OVER THIS SHIFT. POST FIRST ADMINISTRATION, HR 90-105, BP STABLE. PT DIFFICULT TO AROUSE WHEN SLEEPING PER BASELINE. PT ON BASELINE 3LNC. RASH TO FOLDS. OTHERWISE, NO ACUTE CHANGES. BED ALARM ON.
--- NOTE | 2022-02-19 19:28 | NUR ---
ASSUMED CARE OF PT, BEDSIDE REPORT RECEIVED. PT IS RESTING QUIETLY RECLINING IN BED AND WATCHING TV, DENIES NEEDS AT THIS TIME, STATES THAT SOB/DYSPNEA DOES CONTINUE HOWEVER IS APPROACHING HER BASELINE AND FEELS MUCH IMPROVED FROM YESTERDAY. SATS ARE MAINTAINING HIGH 90S ON HOME FLOW RATE OF 3L/MIN NC. CALL LIGHT IN REACH WILL CONT TO MONITOR.
--- NOTE | 2022-02-20 05:37 | NUR ---
PT REPORTS THAT SHE HAS BEEN AWAKE ALL SHIFT HOWEVER SHE DOES STATE THAT SHE FREQUENTLY DOES THIS AT HOME WELL. SHE DENIED NEED FOR ASSISTANCE WITH REPOSITIONING AND HAS BEEN NOTED TO INDEPENDENTLY REPOSITION HERSELF TO DANGLE AND BACK TO LAYING DOWN. 1 PERSON SBA TO BSC THROUGHOUT NOC AND TOLERATED WELL. SHE CONTINUES TO REPORT THAT HER BREATHING FEELS NEAR BASELINE. SHE HAS DENIED NEEDS THROUGHOUT NOC OTHER THAN CALLING FOR ASSISTANCE TO BSC. WILL CONT TO MONITOR.
[2022-02-20 05:39] LABS: International Normalized Ratio 3.7; Prothrombin Time Results 35.7 Sec (9.7-11.5)
--- NOTE | 2022-02-20 08:30 | NUR ---
INITIAL ASSESSMENT: Patient is awake sitting up in bed. She is alert and oriented x4. She denies pain at this time. HR Irreg, A-Fib in the 90s-metoprolol for rate control. LS DIM T/O, biox WNL on 3L via NC-which is patients home dose of oxygen. BT+. PPP, pt has trace edema to BLE. She has some red, dry areas around her elbows and her back,she states this is due to psoriasis. VSS. AM meds given at this time. Call light in reach, [id number].
[2022-02-20] MEDS ORDERED: NYAMYC15 G1 TOP (11:32)
--- NOTE | 2022-02-20 12:45 | NUR ---
Discharge Note: Patient and daughter verbalize understanding of discharge instructions. IV DC'd cath intact. Patient discharged home with daughter via WC.
== END 2022-02-20 13:41 | disposition home or self-care (01) | DRG 281 ==
LOC: ER 21:05 → MEDS 21:06 → ER 22:29 → MEDS 22:29 → PCU 02-17 15:56 → MEDS 02-17 15:57 → PCU 02-18 23:11
PROVIDERS: Emergency Medicine; Internal Medicine; ADMIT Internal Medicine
PROC: 5A09357 Assistance with Respiratory Ventilation, Less than 24 Consecutive Hours, Continuous Positive Airway Pressure (ICD-10-PCS; principal; 2022-02-17)
DX: I48.20 Chronic atrial fibrillation, unspecified (principal); I21.A1 Myocardial infarction type 2; I50.22 Chronic systolic (congestive) heart failure; I13.0 Hypertensive heart and chronic kidney disease with heart failure and stage 1 through stage 4 chronic kidney disease, or unspecified chronic kidney disease; Z68.41 Body mass index [BMI] 40.0-44.9, adult; J96.11 Chronic respiratory failure with hypoxia; Z68.43 Body mass index [BMI] 50.0-59.9, adult; I27.20 Pulmonary hypertension, unspecified; Z20.822 Contact with and (suspected) exposure to COVID-19; I07.1 Rheumatic tricuspid insufficiency; Z86.711 Personal history of pulmonary embolism; Z86.718 Personal history of other venous thrombosis and embolism; E66.01 Morbid (severe) obesity due to excess calories; G47.33 Obstructive sleep apnea (adult) (pediatric); I25.10 Atherosclerotic heart disease of native coronary artery without angina pectoris; L30.4 Erythema intertrigo; B37.2 Candidiasis of skin and nail; M19.90 Unspecified osteoarthritis, unspecified site; F32.A Depression, unspecified; I25.2 Old myocardial infarction; Z79.899 Other long term (current) drug therapy; Z79.01 Long term (current) use of anticoagulants; Z90.49 Acquired absence of other specified parts of digestive tract; Z90.710 Acquired absence of both cervix and uterus; Z98.890 Other specified postprocedural states; N18.2 Chronic kidney disease, stage 2 (mild); R79.89 Other specified abnormal findings of blood chemistry
CPT/HCPCS: 0241U; 36415; 70450; 71045; 78452; 80053; 81001; 82248; 83735; 83880; 84100; 84484; 85025; 85610; 87077; 87086; 87186; 93005; 93010; 93017; 94640; 94660; 94664; 94760; 94762; 96374; 97110; 97116; 97162; 97166; 97530; 99285-25; A9270; A9500; G0378; J0280; J1160; J1940; J2785